=== PATIENT | female | born 1955 | race Caucasian/White ===

== ENCOUNTER → 2017-03-14 | Day surgery (SDC) | payer OTHER ==
--- NOTE | 2017-03-15 12:40 | PATH ---
Cytology Non-Gynecological Report Patient Name: BETTY AMARO [facility]. Rec. #: [id number] /Age/Gender: 1955 (Age: 61) / F Account: [id number] Location: [facility] Taken: 03/14/2017 Received: 03/14/2017 Reported: 03/15/2017 Physicians: Miranda Ortiz M.D. Specimen(s) Received RIGHT THYROID FNA Clinical History Right thyroid nodule, 3.67 x 3.24 x 4.24 cm Final Diagnosis THYROID GLAND, RIGHT LOBE, US GUIDED FINE NEEDLE ASPIRATION BIOPSY: SATISFACTORY FOR EVALUATION. NO MALIGNANT CELLS IDENTIFIED. CONSISTENT WITH NODULAR HYPERPLASIA (BENIGN FOLLICULAR NODULE, BETHESDA CATEGORY II, BENIGN), SEE COMMENT. Comment: The smears and the cell block show clusters of bland appearing follicular epithelial cells arranged in mixed macro- and microfollicles. 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 Scattered macrophages are present. Colloid is present. Electronically Signed Neeraj Dyer M.D. Gross Description Received are four air dried smears, four smears in 95% alcohol, and 20 cc of bloody fluid in formalin. Four diff-quik stained slides, four Pap stained slides and one cell block are made.
== END | disposition home or self-care (01) ==
LOC: JRADIR 08:25
PROVIDERS: ATTEND Internal Medicine Endocrinology, Diabetes & Metabolism
PROC: 0G9H3ZX Drainage of Right Thyroid Gland Lobe, Percutaneous Approach, Diagnostic (ICD-10-PCS; principal; 2017-03-14)
PROC: BG44ZZZ Ultrasonography of Thyroid Gland (ICD-10-PCS; 2017-03-14)
DX: E04.1 Nontoxic single thyroid nodule (principal)
CPT/HCPCS: 76942; 88173; 88305-TC

== ENCOUNTER 2019-05-08 11:25 | Emergency (ER) | payer OTHER ==
[2019-05-08 11:34] VITALS: BP 143/83; PULSE 56; TEMP 98.6; BMI 40.7
--- NOTE | 2019-05-08 11:46 | PDOC ---
History of Present Illness - General Chief Complaint: Injury Stated Complaint: FALL Time Seen by Provider: 05/08/19 11:38 History Source: Patient Exam Limitations: No Limitations - History of Present Illness Initial Comments: 05/08/19 11:44 tripped and fell onto right shoulder- states felt a crack and unable to lift arm since Occurred: reports: just prior to arrival, this morning Severity: reports: moderate, severe Pain Location: reports: upper extremity (right shouler ) Method of Injury: Yes: fall Modifying Factors: improves with: None Loss of Consciousness: no loss of consciousness Associated Symptoms (Fall): denies symptoms Past History - Travel Traveled outside of the country in the last 30 days: No Close contact w/someone who was outside of country & ill: No - Past Medical History Allergies/Adverse Reactions: Allergies Allergy/AdvReac Type Severity Reaction Status Date / Time No Known Allergies Allergy Verified 02/01/16 16:37 Home Medications: Ambulatory Orders Atorvastatin Ca [Lipitor] 80 mg PO HS 01/31/16 Eplerenone [Inspra] 25 mg PO DAILY 01/31/16 Fenofibrate Nanocrystallized [Fenofibrate] 48 mg PO DAILY 01/31/16 Glimepiride [Amaryl -] 4 mg PO BID 01/31/16 Lisinopril [Prinivil -] 40 mg PO DAILY 01/31/16 Sitagliptin Phosphate [Januvia -] 100 mg PO DAILY 01/31/16 Escitalopram Oxalate [Lexapro -] 10 mg PO DAILY 05/08/19 Oxycodone HCl/Acetaminophen [Percocet 5-325 mg Tablet -] 1 - 2 tab PO Q4H PRN # 7 tablet MDD 4 05/08/19 Cardiac Disorders: Yes (cardiomegaly) COPD: No Diabetes: Yes HTN: Yes - Immunization History Immunization Up to Date: No - Psycho Social/Smoking Cessation Hx Smoking History: Never smoked Have you smoked in the past 12 months: No Information on smoking cessation initiated: No Hx Alcohol Use: No Drug/Substance Use Hx: No Trauma Specific PMHX - Complaint Specific PMHX Arthritis: No Back Injury: No Review of Systems - Review of Systems Able to Perform ROS?: Yes Is the patient limited [place] proficient: Yes Constitutional: Yes: Symptoms Reported, See HPI, Malaise. No: Fever HEENTM: Yes: See HPI. No: Symptoms Reported Respiratory: Yes: See HPI. No: Symptoms reported All Other Systems: Reviewed and Negative *Physical Exam - Vital Signs Last Vital Signs Temp Pulse Resp BP Pulse Ox 98.6 F 56 L 16 143/83 97 05/08/19 11:31 05/08/19 11:31 05/08/19 11:31 05/08/19 11:31 05/08/19 11:31 - Physical Exam General Appearance: Yes: Nourished, Appropriately Dressed, Apparent Distress, Mild Distress HEENT: positive: PHOEBE, Normal ENT Inspection, TMs Normal, Pharynx Normal Neck: positive: Tender, Supple. negative: Lymphadenopathy (R), Lymphadenopathy (L) Respiratory/Chest: positive: Lungs Clear Gastrointestinal/Abdominal: positive: Soft. negative: Tender Musculoskeletal: positive: Decreased Range of Motion. negative: Vertebral Tenderness Extremity: positive: Normal Inspection, Tender, Swelling, Other (Neurovascular intact to hand, strong grasp, flexion and extension of fingers.). negative: Normal Range of Motion Integumentary: positive: Normal Color Neurologic: positive: youth specialist II-XII NML intact, Fully Oriented, Alert, Normal Mood/ Affect, Normal Response, Motor Strength 11/24 ED Treatment Course - RADIOLOGY Radiology Studies Ordered: Category Date Time Status SHOULDER-RIGHT [RAD] Stat Radiology 05/08/19 11:41 Ordered ED Progress Note - Progress Note Progress Note: 05/08/19 15:42 X-ray shows displaced comminuted fracture of humeral head right sling placed, provided Percocet for pain relief, and will follow-up with orthopedist this week. Discharge - Discharge Information Problems reviewed: Yes Clinical Impression/Diagnosis: Fracture of humeral head, right, closed Qualifiers: Encounter type: initial encounter Qualified Code(s): S42.291A - Other displaced fracture of upper end of right humerus, initial encounter for closed fracture Condition: Stable Disposition: HOME - Admission No - Additional Discharge Information Prescriptions: Oxycodone HCl/Acetaminophen [Percocet 5-325 mg Tablet -] 1 - 2 tab PO Q4H PRN # 7 tablet MDD 4 PRN Reason: Pain - Follow up/Referral Referrals: Ahsan Inman MD [Staff Physician] - - Patient Discharge Instructions Patient Printed Discharge Instructions: How to Use a Sling, Humeral Shaft Fracture Additional Instructions: Rest, ice to area on and off for 15 minutes 4-6 times a day Avoid heavy lifting or exercise until pain and swelling is resolved or until further directed Keep area highly elevated to reduce swelling Use splints/Pedro wrap as directed Followup with orthopedist in one to 2 days if not improving, if significantly improved may wait one week for followup with orthopedist May use ibuprofen every 6 hours as needed for pain - Post Discharge Activity Work/Back to School Note: Back to Work
== END 2019-05-08 12:15 | disposition home or self-care (01) ==
LOC: JERFT 11:25
DX: S42.291A Other displaced fracture of upper end of right humerus, initial encounter for closed fracture (principal); W01.0XXA Fall on same level from slipping, tripping and stumbling without subsequent striking against object, initial encounter; Y93.9 Activity, unspecified; Y92.89 Other specified places as the place of occurrence of the external cause; I51.7 Cardiomegaly; E11.9 Type 2 diabetes mellitus without complications; I10 Essential (primary) hypertension
CPT/HCPCS: 73030-TC-RT-FY; 99281-25

== ENCOUNTER 2021-05-30 07:24 | Inpatient (IN) | payer MEDICARE, OTHER ==
[2021-05-30 07:45] VITALS: BMI 52.2
[2021-05-30 09:57] LABS: BASO % 0.4 % (0-2.0); EOS % 2.8 % (0-4.5); HEMATOCRIT 35.9 % (32.4-45.2); HEMOGLOBIN 12.8 GM/dL (10.7-15.3); LYMPH % 18.7 % (8-40); MCH 29.3 pg (25.7-33.7); MCHC 35.6 g/dl (32.0-36.0); MEAN CELL VOLUME 82.4 fl (80-96); MEAN PLT VOLUME 7.7 fl (7.5-11.1); MONO % 6.4 % (3.8-10.2); NEUT % 71.7 % (42.8-82.8); PLATELET COUNT 222 10^3/uL (134-434); RBC 4.36 M/mm3 (3.60-5.2); RDW 14.5 % (11.6-15.6); WHITE BLOOD COUNT 9.5 K/mm3 (4.0-10.0)
[2021-05-30 10:03] LABS: INR 0.97 (0.83-1.09); PROTHROMBIN TIME (PATIENT) 10.9 SEC (9.7-13.0)
[2021-05-30 10:06] LABS: ACTIVATED PTT 31.2 SECONDS (25.2-36.5)
[2021-05-30 10:20] LABS: CHLORIDE 109 mmol/L (98-107); SODIUM 141 mmol/L (136-145)
[2021-05-30 10:22] LABS: ALBUMIN 2.9 g/dl (3.4-5.0); ANION GAP 7 MMOL/L (8-16); CALCIUM 8.7 mg/dL (8.5-10.1); CO2 25 mmol/L (21-32); GLUCOSE,RANDOM 176 mg/dL (74-106)
[2021-05-30 10:25] LABS: CREATININE 0.9 mg/dL (0.55-1.3); SGOT/AST 14 U/L (15-37); SGPT/ALT 19 U/L (13-61)
[2021-05-30 10:27] LABS: BILIRUBIN,TOTAL 0.2 mg/dL (0.2-1); TOT PROT 6.6 g/dl (6.4-8.2)
[2021-05-30 10:28] LABS: ALK PHOS 86 U/L (45-117)
[2021-05-30 21:11] LABS: BASO % 0.8 % (0-2.0); EOS % 3.1 % (0-4.5); HEMATOCRIT 35.2 % (32.4-45.2); HEMOGLOBIN 12.2 GM/dL (10.7-15.3); LYMPH % 27.8 % (8-40); MCH 28.5 pg (25.7-33.7); MCHC 34.6 g/dl (32.0-36.0); MEAN CELL VOLUME 82.4 fl (80-96); MEAN PLT VOLUME 8.2 fl (7.5-11.1); MONO % 8.9 % (3.8-10.2); NEUT % 59.4 % (42.8-82.8); PLATELET COUNT 222 10^3/uL (134-434); RBC 4.27 M/mm3 (3.60-5.2); RDW 14.5 % (11.6-15.6); WHITE BLOOD COUNT 9.1 K/mm3 (4.0-10.0)
[2021-05-30] MEDS ORDERED: ATORVASTATIN CA 80 MG TABLET (FP) ONE (22:19)
[2021-05-30] MEDS ORDERED: METOPROLOL TARTRATE 50 MG TABLET (FP) ONE (22:19)
[2021-05-30] MEDS ORDERED: INSULIN (LEVEMIR) 100 UNITS/ML UNITS SQ ONE (22:20)
[2021-05-30] MEDS: INSULIN (LEVEMIR) 100 UNITS/ML UNITS SQ SCH (22:37)
[2021-05-30] MEDS: VANCOMYCIN 1 GM in D5W (PRE-DOCKED) 1,000 MG/250 ML IVPB SCH (22:37)
[2021-05-30] MEDS: ATORVASTATIN CA 80 MG TABLET (FP) PO SCH (22:38)
[2021-05-30] MEDS: METOPROLOL TARTRATE 50 MG TABLET (FP) PO SCH (22:38)
[2021-05-30] MEDS: INSULIN SLIDING SCALE (NOVOLOG) 1 VIAL SQ SCH (22:38)
[2021-05-31] MEDS: PIPERACILLIN/TAZOB 3.375 GM 3.375 GM in DEXTROSE 5%-WATER - 50 ML IVPB SCH ×5 (02:22→20:01)
[2021-05-31 07:48] LABS: ALBUMIN 2.9 g/dl (3.4-5.0); CALCIUM 8.3 mg/dL (8.5-10.1)
[2021-05-31 07:49] LABS: MAGNESIUM 1.8 mg/dL (1.8-2.4)
[2021-05-31 07:51] LABS: PHOSPHOROUS 3.3 mg/dL (2.5-4.9)
[2021-05-31 07:52] LABS: BILIRUBIN,TOTAL 0.4 mg/dL (0.2-1); TOT PROT 6.7 g/dl (6.4-8.2)
[2021-05-31] MEDS: INSULIN SLIDING SCALE (NOVOLOG) 1 VIAL SQ SCH ×4 (08:14→21:32)
[2021-05-31] MEDS ORDERED: VANCOMYCIN 1 GRAM (PRE-DOCKED) 1,000 MG/250 ML BAG IVPB ONE (08:18)
[2021-05-31] MEDS ORDERED: METOPROLOL TARTRATE 50 MG TABLET (FP) ONE (09:50)
[2021-05-31] MEDS ORDERED: ESCITALOPRAM OXALATE 10 MG TABLET ONE (09:50)
[2021-05-31] MEDS ORDERED: LISINOPRIL 20 MG TABLET ONE (09:50)
[2021-05-31] MEDS ORDERED: PIPERACILLIN/TAZOB 3.375 GM 3.375 GM/50 ML BAG IVPB ONE (09:51)
[2021-05-31] MEDS: ESCITALOPRAM OXALATE 10 MG TABLET PO SCH (10:04)
[2021-05-31] MEDS: VANCOMYCIN 1 GM in D5W (PRE-DOCKED) 1,000 MG/250 ML IVPB SCH ×3 (10:04→20:01)
[2021-05-31] MEDS: METOPROLOL TARTRATE 50 MG TABLET (FP) PO SCH ×2 (10:04→21:31)
[2021-05-31] MEDS: LISINOPRIL 20 MG TABLET PO SCH (10:04)
[2021-05-31] MEDS ORDERED: ENOXAPARIN NA (PORCINE) 40 MG/0.4 ML DISP.SYRIN SQ ONE (13:14)
[2021-05-31] MEDS: ENOXAPARIN NA (PORCINE) 40 MG/0.4 ML DISP.SYRIN SQ SCH (14:26)
[2021-05-31] MEDS ORDERED: DEXTROSE 5%-WATER - 50 ML IVPB ONE (17:03)
[2021-05-31] MEDS ORDERED: PIPERACILLIN/TAZOBACTAM 3.375 GM VIAL IVPB ONE (17:03)
[2021-05-31] MEDS: ATORVASTATIN CA 80 MG TABLET (FP) PO SCH (21:31)
[2021-05-31] MEDS: INSULIN (LEVEMIR) 100 UNITS/ML UNITS SQ SCH (21:32)
[2021-06-01] MEDS: INSULIN SLIDING SCALE (NOVOLOG) 1 VIAL SQ SCH ×4 (06:01→22:06)
[2021-06-01 09:01] LABS: BASO % 0.4 % (0-2.0); EOS % 3.4 % (0-4.5); HEMATOCRIT 36.1 % (32.4-45.2); HEMOGLOBIN 12.4 GM/dL (10.7-15.3); LYMPH % 21.4 % (8-40); MCHC 34.4 g/dl (32.0-36.0); MEAN CELL VOLUME 84.3 fl (80-96); MEAN PLT VOLUME 8.5 fl (7.5-11.1); MONO % 8.9 % (3.8-10.2); NEUT % 65.9 % (42.8-82.8); PLATELET COUNT 223 10^3/uL (134-434); RBC 4.28 M/mm3 (3.60-5.2); RDW 14.4 % (11.6-15.6); WHITE BLOOD COUNT 8.8 K/mm3 (4.0-10.0)
[2021-06-01 09:31] LABS: CREATININE 0.9 mg/dL (0.55-1.3)
[2021-06-01 09:33] LABS: BILIRUBIN,TOTAL 0.5 mg/dL (0.2-1); TOT PROT 6.7 g/dl (6.4-8.2)
[2021-06-01] MEDS: ESCITALOPRAM OXALATE 10 MG TABLET PO SCH (11:26)
[2021-06-01] MEDS: METOPROLOL TARTRATE 50 MG TABLET (FP) PO SCH ×2 (11:27→22:05)
[2021-06-01] MEDS: ENOXAPARIN NA (PORCINE) 40 MG/0.4 ML DISP.SYRIN SQ SCH (11:27)
[2021-06-01] MEDS: LISINOPRIL 20 MG TABLET PO SCH (11:27)
[2021-06-01] MEDS ORDERED: DEXTROSE 5%-WATER 100 ML IVPB ONE (13:23)
[2021-06-01] MEDS: CEFTRIAXONE 2 GM in DEXTROSE 5%-WATER 2 GM/100 ML BAG IVPB SCH (14:09)
[2021-06-01] MEDS ORDERED: INSULIN (NOVOLOG) ASPART 100 UNITS/ML 10ML VIAL ONE (22:03)
[2021-06-01] MEDS: INSULIN (LEVEMIR) 100 UNITS/ML UNITS SQ SCH (22:05)
[2021-06-01] MEDS: ATORVASTATIN CA 80 MG TABLET (FP) PO SCH (22:05)
[2021-06-02] MEDS: INSULIN SLIDING SCALE (NOVOLOG) 1 VIAL SQ SCH ×4 (06:28→21:59)
[2021-06-02 09:46] LABS: BASO % 0.5 % (0-2.0); EOS % 3.6 % (0-4.5); HEMATOCRIT 37.9 % (32.4-45.2); HEMOGLOBIN 12.8 GM/dL (10.7-15.3); LYMPH % 15.9 % (8-40); MCH 28.9 pg (25.7-33.7); MCHC 33.7 g/dl (32.0-36.0); MEAN CELL VOLUME 85.9 fl (80-96); MEAN PLT VOLUME 8.9 fl (7.5-11.1); MONO % 7.9 % (3.8-10.2); NEUT % 72.1 % (42.8-82.8); PLATELET COUNT 237 10^3/uL (134-434); RBC 4.41 M/mm3 (3.60-5.2); RDW 14.2 % (11.6-15.6); WHITE BLOOD COUNT 6.9 K/mm3 (4.0-10.0)
[2021-06-02 10:09] LABS: ALBUMIN 3.1 g/dl (3.4-5.0); BLOOD UREA NITROGEN 25.6 mg/dL (7-18); CALCIUM 8.5 mg/dL (8.5-10.1)
[2021-06-02 10:12] LABS: CREATININE 0.9 mg/dL (0.55-1.3)
[2021-06-02 10:13] LABS: BILIRUBIN,TOTAL 0.4 mg/dL (0.2-1)
[2021-06-02] MEDS ORDERED: DEXTROSE 5%-WATER 100 ML IVPB ONE (10:42)
[2021-06-02] MEDS: METOPROLOL TARTRATE 50 MG TABLET (FP) PO SCH ×2 (10:46→21:58)
[2021-06-02] MEDS: ESCITALOPRAM OXALATE 10 MG TABLET PO SCH (10:46)
[2021-06-02] MEDS: ENOXAPARIN NA (PORCINE) 40 MG/0.4 ML DISP.SYRIN SQ SCH (10:47)
[2021-06-02] MEDS: CEFTRIAXONE 2 GM in DEXTROSE 5%-WATER 2 GM/100 ML BAG IVPB SCH (10:47)
[2021-06-02] MEDS: LISINOPRIL 20 MG TABLET PO SCH (10:47)
[2021-06-02] MEDS: ATORVASTATIN CA 80 MG TABLET (FP) PO SCH (21:58)
[2021-06-02] MEDS: INSULIN (LEVEMIR) 100 UNITS/ML UNITS SQ SCH (21:58)
[2021-06-03] MEDS: INSULIN SLIDING SCALE (NOVOLOG) 1 VIAL SQ SCH ×4 (06:54→21:53)
[2021-06-03] MEDS ORDERED: INSULIN (LEVEMIR) 100 UNITS/ML UNITS SQ ONE (07:45)
[2021-06-03] MEDS ORDERED: INSULIN (NOVOLOG) ASPART 100 UNITS/ML 10ML VIAL ONE (07:46)
[2021-06-03 09:10] LABS: BASO % 0.6 % (0-2.0); EOS % 4.3 % (0-4.5); HEMATOCRIT 38.3 % (32.4-45.2); HEMOGLOBIN 12.9 GM/dL (10.7-15.3); LYMPH % 23.2 % (8-40); MCH 28.8 pg (25.7-33.7); MCHC 33.7 g/dl (32.0-36.0); MEAN CELL VOLUME 85.4 fl (80-96); MEAN PLT VOLUME 8.7 fl (7.5-11.1); MONO % 9.8 % (3.8-10.2); NEUT % 62.1 % (42.8-82.8); PLATELET COUNT 232 10^3/uL (134-434); RBC 4.48 M/mm3 (3.60-5.2); RDW 14.1 % (11.6-15.6); WHITE BLOOD COUNT 7.1 K/mm3 (4.0-10.0)
[2021-06-03 09:26] LABS: ALBUMIN 2.8 g/dl (3.4-5.0); BLOOD UREA NITROGEN 24.1 mg/dL (7-18)
[2021-06-03 09:29] LABS: CREATININE 0.8 mg/dL (0.55-1.3)
[2021-06-03 09:30] LABS: BILIRUBIN,TOTAL 0.3 mg/dL (0.2-1); TOT PROT 6.5 g/dl (6.4-8.2)
[2021-06-03] MEDS ORDERED: DEXTROSE 5%-WATER 100 ML IVPB ONE (10:15)
[2021-06-03] MEDS: ESCITALOPRAM OXALATE 10 MG TABLET PO SCH (10:34)
[2021-06-03] MEDS: METOPROLOL TARTRATE 50 MG TABLET (FP) PO SCH ×2 (10:34→21:50)
[2021-06-03] MEDS: CEFTRIAXONE 2 GM in DEXTROSE 5%-WATER 2 GM/100 ML BAG IVPB SCH (10:34)
[2021-06-03] MEDS: LISINOPRIL 20 MG TABLET PO SCH (10:35)
[2021-06-03] MEDS: ENOXAPARIN NA (PORCINE) 40 MG/0.4 ML DISP.SYRIN SQ SCH (10:35)
[2021-06-03] MEDS ORDERED: PT OWN MED DRAWER 7, Y5N ONE (11:53)
[2021-06-03] MEDS: ATORVASTATIN CA 80 MG TABLET (FP) PO SCH (21:50)
[2021-06-03] MEDS: INSULIN (LEVEMIR) 100 UNITS/ML UNITS SQ SCH (21:53)
[2021-06-04] MEDS: INSULIN SLIDING SCALE (NOVOLOG) 1 VIAL SQ SCH ×4 (06:32→21:02)
[2021-06-04 08:51] LABS: BASO % 0.8 % (0-2.0); EOS % 3.1 % (0-4.5); HEMATOCRIT 38.5 % (32.4-45.2); LYMPH % 25.6 % (8-40); MCH 28.9 pg (25.7-33.7); MCHC 33.8 g/dl (32.0-36.0); MEAN CELL VOLUME 85.4 fl (80-96); MEAN PLT VOLUME 8.9 fl (7.5-11.1); MONO % 8.3 % (3.8-10.2); NEUT % 62.2 % (42.8-82.8); PLATELET COUNT 238 10^3/uL (134-434); RBC 4.51 M/mm3 (3.60-5.2); RDW 14.1 % (11.6-15.6); WHITE BLOOD COUNT 7.5 K/mm3 (4.0-10.0)
[2021-06-04 09:12] LABS: CALCIUM 8.8 mg/dL (8.5-10.1)
[2021-06-04 09:15] LABS: ALBUMIN 2.8 g/dl (3.4-5.0)
[2021-06-04 09:16] LABS: TOT PROT 6.5 g/dl (6.4-8.2)
[2021-06-04 09:18] LABS: CREATININE 0.8 mg/dL (0.55-1.3)
[2021-06-04 09:19] LABS: BILIRUBIN,TOTAL 0.6 mg/dL (0.2-1)
[2021-06-04] MEDS ORDERED: MULTIVITAMINS (DAILY MVI) TABLET (FP) PO SCH (10:00)
[2021-06-04] MEDS: METOPROLOL TARTRATE 50 MG TABLET (FP) PO SCH ×2 (10:07→21:01)
[2021-06-04] MEDS: ESCITALOPRAM OXALATE 10 MG TABLET PO SCH (10:08)
[2021-06-04] MEDS: LISINOPRIL 20 MG TABLET PO SCH (10:08)
[2021-06-04] MEDS: MULTIVITAMINS (DAILY MVI) TABLET (FP) PO SCH (10:08)
[2021-06-04] MEDS ORDERED: DEXTROSE 5%-WATER 100 ML IVPB ONE (11:24)
[2021-06-04] MEDS: CEFTRIAXONE 2 GM in DEXTROSE 5%-WATER 2 GM/100 ML BAG IVPB SCH (11:30)
[2021-06-04] MEDS: ENOXAPARIN NA (PORCINE) 40 MG/0.4 ML DISP.SYRIN SQ SCH (11:30)
[2021-06-04] MEDS: ATORVASTATIN CA 80 MG TABLET (FP) PO SCH (21:01)
[2021-06-04] MEDS: INSULIN (LEVEMIR) 100 UNITS/ML UNITS SQ SCH (21:01)
[2021-06-05] MEDS: INSULIN SLIDING SCALE (NOVOLOG) 1 VIAL SQ SCH ×4 (06:05→21:01)
[2021-06-05 08:18] LABS: BASO % 0.6 % (0-2.0); HEMATOCRIT 37.2 % (32.4-45.2); HEMOGLOBIN 12.7 GM/dL (10.7-15.3); LYMPH % 25.2 % (8-40); MCH 29.2 pg (25.7-33.7); MCHC 34.1 g/dl (32.0-36.0); MEAN CELL VOLUME 85.4 fl (80-96); MEAN PLT VOLUME 8.8 fl (7.5-11.1); MONO % 9.1 % (3.8-10.2); NEUT % 62.1 % (42.8-82.8); PLATELET COUNT 237 10^3/uL (134-434); RBC 4.35 M/mm3 (3.60-5.2); RDW 14.4 % (11.6-15.6); WHITE BLOOD COUNT 8.3 K/mm3 (4.0-10.0)
[2021-06-05 08:35] LABS: CALCIUM 8.4 mg/dL (8.5-10.1)
[2021-06-05 08:36] LABS: BLOOD UREA NITROGEN 29.5 mg/dL (7-18)
[2021-06-05] MEDS ORDERED: DEXTROSE 5%-WATER 100 ML IVPB ONE (09:24)
[2021-06-05] MEDS: LISINOPRIL 20 MG TABLET PO SCH (09:29)
[2021-06-05] MEDS: METOPROLOL TARTRATE 50 MG TABLET (FP) PO SCH ×2 (09:29→21:02)
[2021-06-05] MEDS: ENOXAPARIN NA (PORCINE) 40 MG/0.4 ML DISP.SYRIN SQ SCH (09:29)
[2021-06-05] MEDS: MULTIVITAMINS (DAILY MVI) TABLET (FP) PO SCH (09:29)
[2021-06-05] MEDS: CEFTRIAXONE 2 GM in DEXTROSE 5%-WATER 2 GM/100 ML BAG IVPB SCH (09:30)
[2021-06-05] MEDS: ESCITALOPRAM OXALATE 10 MG TABLET PO SCH (09:30)
[2021-06-05] MEDS: INSULIN (LEVEMIR) 100 UNITS/ML UNITS SQ SCH (21:02)
[2021-06-05] MEDS: ATORVASTATIN CA 80 MG TABLET (FP) PO SCH (21:02)
[2021-06-06] MEDS: INSULIN SLIDING SCALE (NOVOLOG) 1 VIAL SQ SCH ×4 (06:12→21:06)
[2021-06-06 08:28] LABS: BASO % 0.7 % (0-2.0); EOS % 3.3 % (0-4.5); HEMATOCRIT 40.3 % (32.4-45.2); HEMOGLOBIN 13.5 GM/dL (10.7-15.3); LYMPH % 24.2 % (8-40); MCH 28.6 pg (25.7-33.7); MCHC 33.5 g/dl (32.0-36.0); MEAN CELL VOLUME 85.4 fl (80-96); MEAN PLT VOLUME 8.8 fl (7.5-11.1); MONO % 8.2 % (3.8-10.2); NEUT % 63.6 % (42.8-82.8); PLATELET COUNT 246 10^3/uL (134-434); RBC 4.72 M/mm3 (3.60-5.2); RDW 14.4 % (11.6-15.6); WHITE BLOOD COUNT 8.6 K/mm3 (4.0-10.0)
[2021-06-06 09:15] LABS: BLOOD UREA NITROGEN 30.5 mg/dL (7-18)
[2021-06-06 09:18] LABS: CREATININE 0.9 mg/dL (0.55-1.3)
[2021-06-06] MEDS ORDERED: DEXTROSE 5%-WATER 100 ML IVPB ONE (10:01)
[2021-06-06] MEDS: METOPROLOL TARTRATE 50 MG TABLET (FP) PO SCH ×2 (10:02→21:06)
[2021-06-06] MEDS: CEFTRIAXONE 2 GM in DEXTROSE 5%-WATER 2 GM/100 ML BAG IVPB SCH (10:02)
[2021-06-06] MEDS: ESCITALOPRAM OXALATE 10 MG TABLET PO SCH (10:02)
[2021-06-06] MEDS: LISINOPRIL 20 MG TABLET PO SCH (10:02)
[2021-06-06] MEDS: ENOXAPARIN NA (PORCINE) 40 MG/0.4 ML DISP.SYRIN SQ SCH (10:02)
[2021-06-06] MEDS: MULTIVITAMINS (DAILY MVI) TABLET (FP) PO SCH (10:02)
[2021-06-06] MEDS: COLLAGENASE CLOSTRIDIUM HIST. 30 GRAMS TUBE TP SCH (11:40)
[2021-06-06] MEDS: INSULIN (LEVEMIR) 100 UNITS/ML UNITS SQ SCH (21:06)
[2021-06-06] MEDS: ATORVASTATIN CA 80 MG TABLET (FP) PO SCH (21:06)
[2021-06-07] MEDS: INSULIN SLIDING SCALE (NOVOLOG) 1 VIAL SQ SCH ×2 (06:12→11:37)
[2021-06-07] MEDS ORDERED: DEXTROSE 5%-WATER 100 ML IVPB ONE (09:50)
[2021-06-07] MEDS: CEFTRIAXONE 2 GM in DEXTROSE 5%-WATER 2 GM/100 ML BAG IVPB SCH (09:51)
[2021-06-07] MEDS: LISINOPRIL 20 MG TABLET PO SCH (09:52)
[2021-06-07] MEDS: METOPROLOL TARTRATE 50 MG TABLET (FP) PO SCH (09:52)
[2021-06-07] MEDS: ENOXAPARIN NA (PORCINE) 40 MG/0.4 ML DISP.SYRIN SQ SCH (09:52)
[2021-06-07] MEDS: ESCITALOPRAM OXALATE 10 MG TABLET PO SCH (09:52)
[2021-06-07] MEDS: MULTIVITAMINS (DAILY MVI) TABLET (FP) PO SCH (09:53)
[2021-06-07] MEDS: COLLAGENASE CLOSTRIDIUM HIST. 30 GRAMS TUBE TP SCH (09:53)
[2021-06-07 09:55] LABS: HEMATOCRIT 37.5 % (32.4-45.2); HEMOGLOBIN 12.7 GM/dL (10.7-15.3); MCH 28.8 pg (25.7-33.7); MEAN CELL VOLUME 84.9 fl (80-96); MEAN PLT VOLUME 8.8 fl (7.5-11.1); PLATELET COUNT 236 10^3/uL (134-434); RBC 4.41 M/mm3 (3.60-5.2); RDW 14.3 % (11.6-15.6)
[2021-06-07 10:43] LABS: BLOOD UREA NITROGEN 29.4 mg/dL (7-18)
[2021-06-07 10:44] LABS: CALCIUM 8.5 mg/dL (8.5-10.1)
[2021-06-07] MEDS ORDERED: PT OWN MED DRAWER 7, Y5N ONE (13:48)
[2021-06-07 14:24] VITALS: TEMP 98.8
[2021-06-07 15:43] VITALS: BP 138/88; PULSE 66
== END 2021-06-07 16:00 | disposition home or self-care (01) | DRG 629 ==
LOC: JER 07:24 → INTOOBSV 11:40 → UNDOADMOB 11:40 → JERBED 11:40 → J6S 05-31 15:33 → OBSVTOIN 06-02 13:20
PROVIDERS: ADMIT Internal Medicine
PROC: 0QBN0ZX Excision of Right Metatarsal, Open Approach, Diagnostic (ICD-10-PCS; principal; 2021-05-31)
PROC: 05HB33Z Insertion of Infusion Device into Right Basilic Vein, Percutaneous Approach (ICD-10-PCS; 2021-06-07)
PROC: B51MZZA Fluoroscopy of Right Upper Extremity Veins, Guidance (ICD-10-PCS; 2021-06-07)
DX: E11.621 Type 2 diabetes mellitus with foot ulcer (principal); M86.9 Osteomyelitis, unspecified; Z68.43 Body mass index [BMI] 50.0-59.9, adult; L03.115 Cellulitis of right lower limb; E11.51 Type 2 diabetes mellitus with diabetic peripheral angiopathy without gangrene; E11.40 Type 2 diabetes mellitus with diabetic neuropathy, unspecified; E66.01 Morbid (severe) obesity due to excess calories; R59.0 Localized enlarged lymph nodes; I10 Essential (primary) hypertension; E78.5 Hyperlipidemia, unspecified; G47.33 Obstructive sleep apnea (adult) (pediatric); F32.A Depression, unspecified
CPT/HCPCS: 36415; 36569; 71045-TC-FY; 72192-TC; 73630-TC-RT-FY; 76882-TC-RT-FY; 80048; 80053; 82607; 82747; 82784; 82962; 83615; 83735; 84100; 84155; 84165; 84439; 84443; 84484; 85014; 85025; 85027; 85610; 85651; 85730; 86140; 86334; 87040; 87070; 87205; 88305-TC; 88311-TC; 93005; 93010; 93970-TC; 99285-25; C9803; G0378; U0003; U0005

== ENCOUNTER 2022-02-23 09:37 | Inpatient (IN) | payer MEDICARE, OTHER ==
[2022-02-23 09:51] VITALS: BMI 48.8
[2022-02-23] MEDS ORDERED: VANCOMYCIN 1 GM in D5W (PRE-DOCKED) 1,000 MG/250 ML IVPB ONE (10:39)
[2022-02-23] MEDS ORDERED: CEFEPIME HCL/D5W 2 GM/50 ML BAG IVPB ONE (10:39)
[2022-02-23] MEDS ORDERED: VANCOMYCIN/WATER FOR INJ (PEG) 1,000 MG/200 ML BAG IVPB ONE (11:12)
[2022-02-23] MEDS ORDERED: CEFEPIME 2 GM in DEXTROSE 5%-WATER 2 GM/100 ML BAG IVPB ONE (11:45)
[2022-02-23 12:05] LABS: BASO % 0.5 % (0-2.0); EOS % 2.1 % (0-4.5); HEMATOCRIT 36.1 % (32.4-45.2); HEMOGLOBIN 12.1 GM/dL (10.7-15.3); LYMPH % 18.4 % (8-40); MCH 27.7 pg (25.7-33.7); MCHC 33.5 g/dl (32.0-36.0); MEAN CELL VOLUME 82.9 fl (80-96); MEAN PLT VOLUME 8.8 fl (7.5-11.1); MONO % 9.3 % (3.8-10.2); NEUT % 69.7 % (42.8-82.8); PLATELET COUNT 233 10^3/uL (134-434); RBC 4.36 M/mm3 (3.60-5.2); WHITE BLOOD COUNT 8.3 K/mm3 (4.0-10.0)
[2022-02-23 12:14] LABS: INR 0.98 (0.83-1.09); PROTHROMBIN TIME (PATIENT) 11.3 SEC (9.7-13.0)
[2022-02-23 12:20] LABS: ACTIVATED PTT 33.4 SECONDS (25.2-36.5)
[2022-02-23 12:25] LABS: BLOOD UREA NITROGEN 27.3 mg/dL (7-18); CALCIUM 8.8 mg/dL (8.5-10.1)
[2022-02-23 12:26] LABS: ALBUMIN 2.9 g/dl (3.4-5.0)
[2022-02-23 12:29] LABS: BILIRUBIN,TOTAL 0.5 mg/dL (0.2-1); CREATININE 0.8 mg/dL (0.55-1.3)
[2022-02-23 12:30] LABS: TOT PROT 6.4 g/dl (6.4-8.2)
[2022-02-23] MEDS ORDERED: DOCUSATE SODIUM 100 MG CAPSULE (FP) PO PRN (13:34)
[2022-02-23] MEDS ORDERED: ACETAMINOPHEN 325 MG TABLET (FP) PO PRN (13:34)
[2022-02-23] MEDS ORDERED: SENNOSIDES 8.6MG TABLET (FP) PO PRN (13:34)
[2022-02-23] MEDS ORDERED: oxyCODONE HCL 5 MG TABLET PO PRN (13:34)
[2022-02-23] MEDS ORDERED: PATIENT'S OWN MEDICATION (NON-FORMULARY) (Dulaglutide [Trulicity] 1.5 MG/0.5 ML Pen.Injctr SQ SCH (15:00)
[2022-02-23] MEDS: PIPERACILLIN/TAZOB 3.375 GM 3.375 GM in DEXTROSE 5%-WATER - 50 ML IVPB SCH (17:30)
[2022-02-23] MEDS ORDERED: PIPERACILLIN/TAZOB 3.375 GM 3.375 GM/50 ML BAG IVPB ONE (17:59)
[2022-02-23] MEDS: INSULIN SLIDING SCALE (NOVOLOG) 1 VIAL SQ SCH (18:11)
[2022-02-23] MEDS ORDERED: CEFEPIME HCL/D5W 2 GM/50 ML BAG IVPB SCH (22:00)
[2022-02-24] MEDS ORDERED: PIPERACILLIN/TAZOB 3.375 GM 3.375 GM/50 ML BAG IVPB ONE ×3 (04:38→17:58)
[2022-02-24] MEDS ORDERED: ATORVASTATIN CA 80 MG TABLET (FP) ONE ×2 (04:39→21:51)
[2022-02-24] MEDS ORDERED: FUROSEMIDE 40 MG/4 ML INJECTABLE VIAL ONE (06:19)
[2022-02-24] MEDS: PIPERACILLIN/TAZOB 3.375 GM 3.375 GM in DEXTROSE 5%-WATER - 50 ML IVPB SCH ×4 (07:09→18:04)
[2022-02-24] MEDS: INSULIN SLIDING SCALE (NOVOLOG) 1 VIAL SQ SCH ×5 (07:11→22:01)
[2022-02-24] MEDS ORDERED: VANCOMYCIN/WATER 2 GM/400 ML PREMIX BAG IVPB SCH (10:00)
[2022-02-24] MEDS ORDERED: ENOXAPARIN NA (PORCINE) 40 MG/0.4 ML DISP.SYRIN SQ ONE (10:22)
[2022-02-24] MEDS ORDERED: LISINOPRIL 20 MG TABLET ONE (10:22)
[2022-02-24] MEDS ORDERED: ESCITALOPRAM OXALATE 10 MG TABLET ONE (10:22)
[2022-02-24] MEDS: LISINOPRIL 20 MG TABLET PO SCH (10:30)
[2022-02-24] MEDS: ENOXAPARIN NA (PORCINE) 40 MG/0.4 ML DISP.SYRIN SQ SCH (10:30)
[2022-02-24] MEDS: ESCITALOPRAM OXALATE 10 MG TABLET PO SCH (10:30)
[2022-02-24 11:17] LABS: BASO % 0.5 % (0-2.0); EOS % 3.7 % (0-4.5); HEMATOCRIT 37.1 % (32.4-45.2); HEMOGLOBIN 12.6 GM/dL (10.7-15.3); LYMPH % 18.6 % (8-40); MCH 28.2 pg (25.7-33.7); MONO % 10.3 % (3.8-10.2); NEUT % 66.9 % (42.8-82.8); PLATELET COUNT 238 10^3/uL (134-434); RBC 4.47 M/mm3 (3.60-5.2); RDW 14.2 % (11.6-15.6); WHITE BLOOD COUNT 7.3 K/mm3 (4.0-10.0)
[2022-02-24 11:43] LABS: CALCIUM 8.8 mg/dL (8.5-10.1)
[2022-02-24 11:44] LABS: ALBUMIN 3.1 g/dl (3.4-5.0); BLOOD UREA NITROGEN 25.5 mg/dL (7-18)
[2022-02-24 11:45] LABS: MAGNESIUM 1.7 mg/dL (1.8-2.4)
[2022-02-24 11:47] LABS: CREATININE 0.9 mg/dL (0.55-1.3); PHOSPHOROUS 3.1 mg/dL (2.5-4.9)
[2022-02-24 11:49] LABS: BILIRUBIN,TOTAL 0.5 mg/dL (0.2-1); TOT PROT 6.9 g/dl (6.4-8.2)
[2022-02-24] MEDS: COLLAGENASE CLOSTRIDIUM HIST. 30 GRAMS TUBE TP SCH (15:19)
[2022-02-24] MEDS: ATORVASTATIN CA 80 MG TABLET (FP) PO SCH ×2 (22:02)
[2022-02-25] MEDS ORDERED: PIPERACILLIN/TAZOB 3.375 GM 3.375 GM/50 ML BAG IVPB ONE (04:18)
[2022-02-25] MEDS: PIPERACILLIN/TAZOB 3.375 GM 3.375 GM in DEXTROSE 5%-WATER - 50 ML IVPB SCH ×5 (04:28→19:21)
[2022-02-25] MEDS: INSULIN SLIDING SCALE (NOVOLOG) 1 VIAL SQ SCH ×4 (08:49→22:36)
[2022-02-25] MEDS: ENOXAPARIN NA (PORCINE) 40 MG/0.4 ML DISP.SYRIN SQ SCH (10:37)
[2022-02-25] MEDS: ESCITALOPRAM OXALATE 10 MG TABLET PO SCH (10:37)
[2022-02-25] MEDS: LISINOPRIL 20 MG TABLET PO SCH (10:37)
[2022-02-25] MEDS: COLLAGENASE CLOSTRIDIUM HIST. 30 GRAMS TUBE TP SCH (11:38)
[2022-02-25] MEDS ORDERED: DEXTROSE 50%-WATER - 25 GM/50 ML VIAL IVPUSH PRN (15:46)
[2022-02-25] MEDS ORDERED: MAGNESIUM SULF 50% (8.12 MEQ/2 ML-1 GM VIAL) IVPB ONE (17:29)
[2022-02-25 19:57] LABS: HEMATOCRIT 36.9 % (32.4-45.2); HEMOGLOBIN 12.3 GM/dL (10.7-15.3); MCH 27.9 pg (25.7-33.7); MCHC 33.5 g/dl (32.0-36.0); MEAN CELL VOLUME 83.3 fl (80-96); MEAN PLT VOLUME 8.8 fl (7.5-11.1); PLATELET COUNT 246 10^3/uL (134-434); RBC 4.43 M/mm3 (3.60-5.2); RDW 14.3 % (11.6-15.6); WHITE BLOOD COUNT 7.5 K/mm3 (4.0-10.0)
[2022-02-25 20:17] LABS: CALCIUM 8.7 mg/dL (8.5-10.1)
[2022-02-25 20:18] LABS: BLOOD UREA NITROGEN 24.5 mg/dL (7-18); MAGNESIUM 1.6 mg/dL (1.8-2.4)
[2022-02-25 20:19] LABS: ALBUMIN 2.9 g/dl (3.4-5.0)
[2022-02-25 20:21] LABS: CREATININE 1.1 mg/dL (0.55-1.3)
[2022-02-25 20:23] LABS: BILIRUBIN,TOTAL 0.3 mg/dL (0.2-1); PHOSPHOROUS 3.2 mg/dL (2.5-4.9); TOT PROT 6.4 g/dl (6.4-8.2)
[2022-02-25] MEDS: ATORVASTATIN CA 80 MG TABLET (FP) PO SCH (22:35)
[2022-02-25] MEDS: INSULIN (LEVEMIR) 100 UNITS/ML UNITS SQ SCH (22:35)
[2022-02-26] MEDS: PIPERACILLIN/TAZOB 3.375 GM 3.375 GM in DEXTROSE 5%-WATER - 50 ML IVPB SCH ×3 (02:20→17:43)
[2022-02-26] MEDS: INSULIN SLIDING SCALE (NOVOLOG) 1 VIAL SQ SCH ×4 (06:34→21:26)
[2022-02-26] MEDS: INSULIN (LEVEMIR) 100 UNITS/ML UNITS SQ SCH ×2 (06:35→21:26)
[2022-02-26 08:41] LABS: BASO % 0.6 % (0-2.0); EOS % 3.9 % (0-4.5); HEMATOCRIT 36.3 % (32.4-45.2); HEMOGLOBIN 12.2 GM/dL (10.7-15.3); LYMPH % 25.3 % (8-40); MCH 28.2 pg (25.7-33.7); MCHC 33.7 g/dl (32.0-36.0); MEAN CELL VOLUME 83.6 fl (80-96); MEAN PLT VOLUME 8.7 fl (7.5-11.1); MONO % 9.1 % (3.8-10.2); NEUT % 61.1 % (42.8-82.8); PLATELET COUNT 255 10^3/uL (134-434); RBC 4.34 M/mm3 (3.60-5.2); RDW 14.4 % (11.6-15.6); WHITE BLOOD COUNT 7.3 K/mm3 (4.0-10.0)
[2022-02-26 09:03] LABS: CALCIUM 8.9 mg/dL (8.5-10.1)
[2022-02-26 09:04] LABS: BLOOD UREA NITROGEN 26.4 mg/dL (7-18)
[2022-02-26 09:07] LABS: CREATININE 0.9 mg/dL (0.55-1.3)
[2022-02-26] MEDS: ENOXAPARIN NA (PORCINE) 40 MG/0.4 ML DISP.SYRIN SQ SCH (10:21)
[2022-02-26] MEDS: ESCITALOPRAM OXALATE 10 MG TABLET PO SCH (10:21)
[2022-02-26] MEDS: LISINOPRIL 20 MG TABLET PO SCH (10:21)
[2022-02-26] MEDS: COLLAGENASE CLOSTRIDIUM HIST. 30 GRAMS TUBE TP SCH (10:24)
[2022-02-26] MEDS: ATORVASTATIN CA 80 MG TABLET (FP) PO SCH (21:26)
[2022-02-27] MEDS: PIPERACILLIN/TAZOB 3.375 GM 3.375 GM in DEXTROSE 5%-WATER - 50 ML IVPB SCH ×3 (02:33→17:33)
[2022-02-27] MEDS: INSULIN (LEVEMIR) 100 UNITS/ML UNITS SQ SCH ×2 (06:30→21:47)
[2022-02-27] MEDS: INSULIN SLIDING SCALE (NOVOLOG) 1 VIAL SQ SCH ×4 (06:30→21:47)
[2022-02-27] MEDS: ESCITALOPRAM OXALATE 10 MG TABLET PO SCH (10:38)
[2022-02-27] MEDS: LISINOPRIL 20 MG TABLET PO SCH ×2 (10:38→11:25)
[2022-02-27] MEDS: ENOXAPARIN NA (PORCINE) 40 MG/0.4 ML DISP.SYRIN SQ SCH (10:38)
[2022-02-27] MEDS: COLLAGENASE CLOSTRIDIUM HIST. 30 GRAMS TUBE TP SCH (11:14)
[2022-02-27] MEDS: NYSTATIN 100,000 UNIT/GM TOPICAL CREAM 15 GM TUBE TP SCH ×2 (12:01→21:53)
[2022-02-27] MEDS: ATORVASTATIN CA 80 MG TABLET (FP) PO SCH (21:45)
[2022-02-28] MEDS: PIPERACILLIN/TAZOB 3.375 GM 3.375 GM in DEXTROSE 5%-WATER - 50 ML IVPB SCH ×3 (01:59→18:49)
[2022-02-28 06:47] VITALS: RESP 20
[2022-02-28] MEDS: INSULIN SLIDING SCALE (NOVOLOG) 1 VIAL SQ SCH ×4 (06:50→22:57)
[2022-02-28] MEDS: INSULIN (LEVEMIR) 100 UNITS/ML UNITS SQ SCH (06:50)
[2022-02-28] MEDS: ENOXAPARIN NA (PORCINE) 40 MG/0.4 ML DISP.SYRIN SQ SCH (09:28)
[2022-02-28] MEDS: ESCITALOPRAM OXALATE 10 MG TABLET PO SCH (09:29)
[2022-02-28] MEDS: LISINOPRIL 20 MG TABLET PO SCH (09:29)
[2022-02-28] MEDS: COLLAGENASE CLOSTRIDIUM HIST. 30 GRAMS TUBE TP SCH (09:29)
[2022-02-28] MEDS: NYSTATIN 100,000 UNIT/GM TOPICAL CREAM 15 GM TUBE TP SCH ×2 (09:29→23:00)
[2022-02-28 11:49] LABS: HEMATOCRIT 37.4 % (32.4-45.2); HEMOGLOBIN 12.4 GM/dL (10.7-15.3); MCH 27.8 pg (25.7-33.7); MCHC 33.2 g/dl (32.0-36.0); MEAN CELL VOLUME 83.7 fl (80-96); MEAN PLT VOLUME 9.2 fl (7.5-11.1); PLATELET COUNT 243 10^3/uL (134-434); RBC 4.46 M/mm3 (3.60-5.2); WHITE BLOOD COUNT 9.3 K/mm3 (4.0-10.0)
[2022-02-28 12:26] LABS: BILIRUBIN,TOTAL 0.4 mg/dL (0.2-1); BLOOD UREA NITROGEN 22.8 mg/dL (7-18); CREATININE 0.9 mg/dL (0.55-1.3); TOT PROT 6.7 g/dl (6.4-8.2)
[2022-02-28] MEDS ORDERED: INSULIN (LEVEMIR) 100 UNITS/ML UNITS SQ SCH (22:00)
[2022-02-28] MEDS: ATORVASTATIN CA 80 MG TABLET (FP) PO SCH (23:00)
[2022-03-01] MEDS: PIPERACILLIN/TAZOB 3.375 GM 3.375 GM in DEXTROSE 5%-WATER - 50 ML IVPB SCH ×2 (02:45→10:56)
[2022-03-01] MEDS: INSULIN SLIDING SCALE (NOVOLOG) 1 VIAL SQ SCH ×2 (06:42→15:30)
[2022-03-01] MEDS ORDERED: INSULIN (LEVEMIR) 100 UNITS/ML UNITS SQ SCH (07:00)
[2022-03-01 09:17] LABS: BASO % 0.5 % (0-2.0); EOS % 4.2 % (0-4.5); HEMATOCRIT 35.7 % (32.4-45.2); HEMOGLOBIN 12.1 GM/dL (10.7-15.3); LYMPH % 19.5 % (8-40); MEAN CELL VOLUME 82.4 fl (80-96); MEAN PLT VOLUME 8.9 fl (7.5-11.1); MONO % 10.1 % (3.8-10.2); NEUT % 65.7 % (42.8-82.8); PLATELET COUNT 253 10^3/uL (134-434); RBC 4.33 M/mm3 (3.60-5.2); RDW 14.2 % (11.6-15.6); WHITE BLOOD COUNT 8.6 K/mm3 (4.0-10.0)
[2022-03-01] MEDS ORDERED: SILVER SULFADIAZINE 1% TOP CREAM 400 GM JAR TP SCH (10:45)
[2022-03-01] MEDS: LISINOPRIL 20 MG TABLET PO SCH (10:55)
[2022-03-01] MEDS: ESCITALOPRAM OXALATE 10 MG TABLET PO SCH (10:55)
[2022-03-01] MEDS: ENOXAPARIN NA (PORCINE) 40 MG/0.4 ML DISP.SYRIN SQ SCH (10:56)
[2022-03-01] MEDS: NYSTATIN 100,000 UNIT/GM TOPICAL CREAM 15 GM TUBE TP SCH (11:03)
[2022-03-01] MEDS: COLLAGENASE CLOSTRIDIUM HIST. 30 GRAMS TUBE TP SCH (11:03)
[2022-03-01] MEDS ORDERED: CEFTRIAXONE 2 GM in DEXTROSE 5%-WATER 100 ML IVPB ONE (15:01)
[2022-03-01 16:40] VITALS: BP 117/59; PULSE 78; TEMP 96.8
== END 2022-03-01 17:35 | disposition home or self-care (01) | DRG 638 ==
LOC: JER 09:37 → JERBED 12:48 → J8W 02-25 07:58
PROVIDERS: ADMIT Internal Medicine; ATTEND Internal Medicine
PROC: 02HV33Z Insertion of Infusion Device into Superior Vena Cava, Percutaneous Approach (ICD-10-PCS; principal; 2022-03-01)
PROC: B518ZZA Fluoroscopy of Superior Vena Cava, Guidance (ICD-10-PCS; 2022-03-01)
DX: E11.69 Type 2 diabetes mellitus with other specified complication (principal); L03.115 Cellulitis of right lower limb; L97.518 Non-pressure chronic ulcer of other part of right foot with other specified severity; M86.171 Other acute osteomyelitis, right ankle and foot; Z68.41 Body mass index [BMI] 40.0-44.9, adult; L03.116 Cellulitis of left lower limb; I10 Essential (primary) hypertension; E78.5 Hyperlipidemia, unspecified; K44.9 Diaphragmatic hernia without obstruction or gangrene; M10.9 Gout, unspecified; E11.621 Type 2 diabetes mellitus with foot ulcer; G47.33 Obstructive sleep apnea (adult) (pediatric); I51.7 Cardiomegaly; E66.01 Morbid (severe) obesity due to excess calories; E11.40 Type 2 diabetes mellitus with diabetic neuropathy, unspecified; R20.2 Paresthesia of skin; E11.65 Type 2 diabetes mellitus with hyperglycemia; F32.A Depression, unspecified; Z85.42 Personal history of malignant neoplasm of other parts of uterus
CPT/HCPCS: 36415; 36569; 80048; 80053; 82962; 83036; 83735; 84100; 85025; 85027; 85610; 85651; 85730; 86140; 86850; 86900; 86901; 87040; 87081; 93005; 93010; 99285-25; C9803-CS; G0463-25; U0003; U0005

== ENCOUNTER 2022-06-23 11:35 | Inpatient (IN) | payer MEDICARE, OTHER ==
[2022-06-23] MEDS ORDERED: PIPERACILLIN/TAZOB 4.5 GM 4.5 GM in DEXTROSE 5%-WATER 100 ML IVPB ONE (12:43)
[2022-06-23] MEDS ORDERED: VANCOMYCIN 1 GM in D5W (PRE-DOCKED) 1,000 MG/250 ML IVPB ONE (12:43)
[2022-06-23] MEDS ORDERED: VANCOMYCIN/WATER FOR INJ (PEG) 1,000 MG/200 ML BAG IVPB ONE (12:52)
[2022-06-23] MEDS ORDERED: PIPERACILLIN/TAZOB 4.5 GM 4.5 GM/100 ML BAG IVPB ONE (12:52)
[2022-06-23 13:02] LABS: BASO % 0.9 % (0-2.0); EOS % 2.1 % (0-4.5); HEMATOCRIT 36.5 % (32.4-45.2); HEMOGLOBIN 11.8 GM/dL (10.7-15.3); LYMPH % 13.2 % (8-40); MCHC 32.4 g/dl (32.0-36.0); MEAN CELL VOLUME 83.3 fl (80-96); MEAN PLT VOLUME 8.4 fl (7.5-11.1); MONO % 9.2 % (3.8-10.2); NEUT % 74.6 % (42.8-82.8); PLATELET COUNT 302 10^3/uL (134-434); RBC 4.38 M/mm3 (3.60-5.2); RDW 14.9 % (11.6-15.6); WHITE BLOOD COUNT 9.6 K/mm3 (4.0-10.0)
[2022-06-23 13:13] LABS: INR 1.09 (0.83-1.09); PROTHROMBIN TIME (PATIENT) 12.6 SEC (9.7-13.0)
[2022-06-23 13:31] LABS: CALCIUM 8.7 mg/dL (8.5-10.1)
[2022-06-23 13:32] LABS: ALBUMIN 2.6 g/dl (3.4-5.0); BLOOD UREA NITROGEN 20.1 mg/dL (7-18)
[2022-06-23 13:35] LABS: CREATININE 0.8 mg/dL (0.55-1.3)
[2022-06-23 13:37] LABS: BILIRUBIN,TOTAL 0.2 mg/dL (0.2-1); TOT PROT 6.6 g/dl (6.4-8.2)
[2022-06-23 13:40] LABS: N-TERMINAL BNP 774.8 pg/ml (5-125)
[2022-06-23 13:44] VITALS: BMI 48.8
[2022-06-23] MEDS: INSULIN SLIDING SCALE (NOVOLOG) 1 VIAL SQ SCH ×2 (16:30→22:03)
[2022-06-23 17:22] LABS: EPI CELLS 10 /uL (0-25.1); HYALINE CASTS 1 /uL (0-3.1); URINE APPEARANCE CLEAR; URINE BACTERIA 22 /uL (0-1359); URINE BILIRUBIN NEGATIVE (NEGATIVE); URINE COLOR YELLOW; URINE GLUCOSE (UA) NEGATIVE (NEGATIVE); URINE KETONE NEGATIVE (NEGATIVE); URINE LEUK ESTERASE NEGATIVE (NEGATIVE); URINE NITRITE NEGATIVE (NEGATIVE); URINE PROTEIN 2+ (NEGATIVE); URINE RBC 19 /uL (0-23.9); URINE WBC 6 /uL (0-25.8)
[2022-06-23] MEDS: COLLAGENASE CLOSTRIDIUM HIST. 30 GRAMS TUBE TP SCH (18:51)
[2022-06-23] MEDS ORDERED: FLU VACC QS2022-23(6MOS UP)/PF 60 MCG/0.5 ML SYRINGE IM ONE (21:00)
[2022-06-23] MEDS: ATORVASTATIN CA 80 MG TABLET (FP) PO SCH (22:04)
[2022-06-23] MEDS: HEPARIN NA (PORCINE) 5,000 UNITS/ML 1ML VIAL SQ SCH (22:04)
[2022-06-24] MEDS: PIPERACILLIN/TAZOB 3.375 GM 3.375 GM in DEXTROSE 5%-WATER - 50 ML IVPB SCH ×3 (02:14→17:29)
[2022-06-24] MEDS: INSULIN SLIDING SCALE (NOVOLOG) 1 VIAL SQ SCH ×4 (06:24→22:03)
[2022-06-24] MEDS: ESCITALOPRAM OXALATE 10 MG TABLET PO SCH (09:44)
[2022-06-24] MEDS: FUROSEMIDE 20 MG TABLET (FP) PO SCH (09:44)
[2022-06-24] MEDS: LISINOPRIL 20 MG TABLET PO SCH (09:45)
[2022-06-24] MEDS: HEPARIN NA (PORCINE) 5,000 UNITS/ML 1ML VIAL SQ SCH ×2 (09:47→22:03)
[2022-06-24] MEDS ORDERED: FLU VACC QS2022-23(6MOS UP)/PF 60 MCG/0.5 ML SYRINGE IM ONE (10:00)
[2022-06-24 11:06] LABS: BASO % 0.4 % (0-2.0); EOS % 2.7 % (0-4.5); MCH 27.1 pg (25.7-33.7); MCHC 32.4 g/dl (32.0-36.0); MEAN CELL VOLUME 83.4 fl (80-96); MEAN PLT VOLUME 8.4 fl (7.5-11.1); MONO % 9.4 % (3.8-10.2); NEUT % 71.5 % (42.8-82.8); PLATELET COUNT 297 10^3/uL (134-434); RBC 4.07 M/mm3 (3.60-5.2); RDW 15.3 % (11.6-15.6); WHITE BLOOD COUNT 7.5 K/mm3 (4.0-10.0)
[2022-06-24 11:26] LABS: CALCIUM 8.7 mg/dL (8.5-10.1)
[2022-06-24 11:27] LABS: ALBUMIN 2.3 g/dl (3.4-5.0); BLOOD UREA NITROGEN 20.6 mg/dL (7-18); MAGNESIUM 1.6 mg/dL (1.8-2.4)
[2022-06-24 11:30] LABS: CREATININE 0.9 mg/dL (0.55-1.3); PHOSPHOROUS 3.4 mg/dL (2.5-4.9)
[2022-06-24 11:31] LABS: TOT PROT 5.9 g/dl (6.4-8.2)
[2022-06-24 11:32] LABS: BILIRUBIN,TOTAL 0.3 mg/dL (0.2-1)
[2022-06-24] MEDS: COLLAGENASE CLOSTRIDIUM HIST. 30 GRAMS TUBE TP SCH ×2 (14:56→17:30)
[2022-06-24] MEDS: VANCOMYCIN/WATER 1250 MG 1,250 MG/250 ML BAG IVPB SCH (22:02)
[2022-06-24] MEDS: ATORVASTATIN CA 80 MG TABLET (FP) PO SCH (22:03)
[2022-06-25] MEDS: PIPERACILLIN/TAZOB 3.375 GM 3.375 GM in DEXTROSE 5%-WATER - 50 ML IVPB SCH ×3 (01:38→17:30)
[2022-06-25] MEDS: INSULIN SLIDING SCALE (NOVOLOG) 1 VIAL SQ SCH ×4 (06:35→22:22)
[2022-06-25] MEDS: LISINOPRIL 20 MG TABLET PO SCH (10:00)
[2022-06-25] MEDS: ESCITALOPRAM OXALATE 10 MG TABLET PO SCH (10:01)
[2022-06-25] MEDS: FUROSEMIDE 20 MG TABLET (FP) PO SCH (10:01)
[2022-06-25] MEDS: VANCOMYCIN/WATER 1250 MG 1,250 MG/250 ML BAG IVPB SCH ×2 (10:02→22:21)
[2022-06-25] MEDS: HEPARIN NA (PORCINE) 5,000 UNITS/ML 1ML VIAL SQ SCH ×2 (10:02→22:21)
[2022-06-25] MEDS: COLLAGENASE CLOSTRIDIUM HIST. 30 GRAMS TUBE TP SCH (18:51)
[2022-06-25] MEDS: ATORVASTATIN CA 80 MG TABLET (FP) PO SCH (22:21)
[2022-06-26] MEDS: PIPERACILLIN/TAZOB 3.375 GM 3.375 GM in DEXTROSE 5%-WATER - 50 ML IVPB SCH ×2 (01:59→10:09)
[2022-06-26] MEDS: INSULIN SLIDING SCALE (NOVOLOG) 1 VIAL SQ SCH ×4 (06:23→22:26)
[2022-06-26 10:09] LABS: BASO % 0.7 % (0-2.0); EOS % 2.7 % (0-4.5); HEMATOCRIT 34.4 % (32.4-45.2); HEMOGLOBIN 11.4 GM/dL (10.7-15.3); LYMPH % 7.9 % (8-40); MCH 27.1 pg (25.7-33.7); MEAN CELL VOLUME 82.2 fl (80-96); MEAN PLT VOLUME 8.6 fl (7.5-11.1); MONO % 12.7 % (3.8-10.2); PLATELET COUNT 290 10^3/uL (134-434); RBC 4.19 M/mm3 (3.60-5.2); RDW 15.5 % (11.6-15.6); WHITE BLOOD COUNT 8.6 K/mm3 (4.0-10.0)
[2022-06-26] MEDS: HEPARIN NA (PORCINE) 5,000 UNITS/ML 1ML VIAL SQ SCH ×2 (10:09→22:24)
[2022-06-26] MEDS: AMINO ACIDS/PROTEIN HYDROLYS 30 ML LIQUID.PKT PO SCH (10:09)
[2022-06-26] MEDS: LISINOPRIL 20 MG TABLET PO SCH (10:10)
[2022-06-26] MEDS: ASCORBIC ACID 500 MG TABLET (FP) PO SCH (10:10)
[2022-06-26] MEDS: ESCITALOPRAM OXALATE 10 MG TABLET PO SCH (10:10)
[2022-06-26] MEDS: FUROSEMIDE 20 MG TABLET (FP) PO SCH (10:10)
[2022-06-26] MEDS: COLLAGENASE CLOSTRIDIUM HIST. 30 GRAMS TUBE TP SCH (10:12)
[2022-06-26 10:45] LABS: BILIRUBIN,TOTAL 0.4 mg/dL (0.2-1); TOT PROT 6.2 g/dl (6.4-8.2)
[2022-06-26 10:47] LABS: CALCIUM 8.5 mg/dL (8.5-10.1)
[2022-06-26 10:48] LABS: ALBUMIN 2.4 g/dl (3.4-5.0); BLOOD UREA NITROGEN 22.3 mg/dL (7-18)
[2022-06-26] MEDS: VANCOMYCIN/WATER 1250 MG 1,250 MG/250 ML BAG IVPB SCH (12:55)
[2022-06-26] MEDS: CEFTRIAXONE 2 GM in DEXTROSE 5%-WATER 100 ML IVPB SCH (17:37)
[2022-06-26] MEDS: ATORVASTATIN CA 80 MG TABLET (FP) PO SCH (22:26)
[2022-06-27] MEDS: INSULIN SLIDING SCALE (NOVOLOG) 1 VIAL SQ SCH ×4 (07:05→21:45)
[2022-06-27] MEDS: AMINO ACIDS/PROTEIN HYDROLYS 30 ML LIQUID.PKT PO SCH (09:45)
[2022-06-27] MEDS: HEPARIN NA (PORCINE) 5,000 UNITS/ML 1ML VIAL SQ SCH ×2 (09:45→21:38)
[2022-06-27] MEDS: ASCORBIC ACID 500 MG TABLET (FP) PO SCH (09:48)
[2022-06-27] MEDS: LISINOPRIL 20 MG TABLET PO SCH (09:48)
[2022-06-27] MEDS: ESCITALOPRAM OXALATE 10 MG TABLET PO SCH (09:49)
[2022-06-27] MEDS: CEFTRIAXONE 2 GM in DEXTROSE 5%-WATER 100 ML IVPB SCH (09:49)
[2022-06-27] MEDS: FUROSEMIDE 20 MG TABLET (FP) PO SCH (09:49)
[2022-06-27] MEDS: COLLAGENASE CLOSTRIDIUM HIST. 30 GRAMS TUBE TP SCH (09:50)
[2022-06-27 12:05] LABS: HEMATOCRIT 34.7 % (32.4-45.2); HEMOGLOBIN 11.1 GM/dL (10.7-15.3); MCH 26.5 pg (25.7-33.7); MCHC 32.1 g/dl (32.0-36.0); MEAN CELL VOLUME 82.7 fl (80-96); MEAN PLT VOLUME 8.8 fl (7.5-11.1); PLATELET COUNT 262 10^3/uL (134-434); RBC 4.19 M/mm3 (3.60-5.2); RDW 15.4 % (11.6-15.6); WHITE BLOOD COUNT 5.2 K/mm3 (4.0-10.0)
[2022-06-27 12:37] LABS: BLOOD UREA NITROGEN 23.2 mg/dL (7-18)
[2022-06-27 12:39] LABS: ANISOCYTOSIS 0; MACROCYTOSIS 0
[2022-06-27 12:40] LABS: CREATININE 0.9 mg/dL (0.55-1.3)
[2022-06-27 12:47] LABS: CALCIUM 8.4 mg/dL (8.5-10.1)
[2022-06-27] MEDS: ATORVASTATIN CA 80 MG TABLET (FP) PO SCH (21:38)
[2022-06-27] MEDS: INSULIN (LEVEMIR) 100 UNITS/ML UNITS SQ SCH (21:40)
[2022-06-28] MEDS: INSULIN SLIDING SCALE (NOVOLOG) 1 VIAL SQ SCH ×4 (06:11→21:18)
[2022-06-28] MEDS: INSULIN (LEVEMIR) 100 UNITS/ML UNITS SQ SCH ×2 (06:13→21:18)
[2022-06-28] MEDS: HEPARIN NA (PORCINE) 5,000 UNITS/ML 1ML VIAL SQ SCH ×2 (09:40→21:20)
[2022-06-28] MEDS: ASCORBIC ACID 500 MG TABLET (FP) PO SCH (09:40)
[2022-06-28] MEDS: AMINO ACIDS/PROTEIN HYDROLYS 30 ML LIQUID.PKT PO SCH (09:40)
[2022-06-28] MEDS: LISINOPRIL 20 MG TABLET PO SCH (09:40)
[2022-06-28] MEDS: FUROSEMIDE 20 MG TABLET (FP) PO SCH (09:40)
[2022-06-28] MEDS: COLLAGENASE CLOSTRIDIUM HIST. 30 GRAMS TUBE TP SCH (09:41)
[2022-06-28] MEDS: CEFTRIAXONE 2 GM in DEXTROSE 5%-WATER 100 ML IVPB SCH (09:41)
[2022-06-28] MEDS: ESCITALOPRAM OXALATE 10 MG TABLET PO SCH (09:41)
[2022-06-28] MEDS: ATORVASTATIN CA 80 MG TABLET (FP) PO SCH (21:20)
[2022-06-29] MEDS: INSULIN SLIDING SCALE (NOVOLOG) 1 VIAL SQ SCH ×4 (06:08→21:37)
[2022-06-29] MEDS: INSULIN (LEVEMIR) 100 UNITS/ML UNITS SQ SCH ×2 (06:32→21:38)
[2022-06-29] MEDS: CEFTRIAXONE 2 GM in DEXTROSE 5%-WATER 100 ML IVPB SCH (10:21)
[2022-06-29] MEDS: LISINOPRIL 20 MG TABLET PO SCH (10:21)
[2022-06-29] MEDS: AMINO ACIDS/PROTEIN HYDROLYS 30 ML LIQUID.PKT PO SCH (10:21)
[2022-06-29] MEDS: ASCORBIC ACID 500 MG TABLET (FP) PO SCH (10:22)
[2022-06-29] MEDS: HEPARIN NA (PORCINE) 5,000 UNITS/ML 1ML VIAL SQ SCH (10:22)
[2022-06-29] MEDS: COLLAGENASE CLOSTRIDIUM HIST. 30 GRAMS TUBE TP SCH (10:22)
[2022-06-29] MEDS: ESCITALOPRAM OXALATE 10 MG TABLET PO SCH (10:22)
[2022-06-29] MEDS: FUROSEMIDE 20 MG TABLET (FP) PO SCH (10:22)
[2022-06-29] MEDS ORDERED: ENOXAPARIN NA (PORCINE) 40 MG/0.4 ML DISP.SYRIN SQ SCH (12:15)
[2022-06-29 13:00] LABS: HEMATOCRIT 37.2 % (32.4-45.2); HEMOGLOBIN 11.9 GM/dL (10.7-15.3); MCH 26.6 pg (25.7-33.7); MEAN CELL VOLUME 83.2 fl (80-96); MEAN PLT VOLUME 8.4 fl (7.5-11.1); PLATELET COUNT 263 10^3/uL (134-434); RBC 4.47 M/mm3 (3.60-5.2); RDW 15.7 % (11.6-15.6); WHITE BLOOD COUNT 3.7 K/mm3 (4.0-10.0)
[2022-06-29 13:20] LABS: CHLORIDE 104 mmol/L (98-107); SODIUM 142 mmol/L (136-145)
[2022-06-29 13:22] LABS: CALCIUM 8.3 mg/dL (8.5-10.1)
[2022-06-29 13:23] LABS: ALBUMIN 2.3 g/dl (3.4-5.0); ANION GAP 7 MMOL/L (8-16); BLOOD UREA NITROGEN 30.5 mg/dL (7-18); CO2 31 mmol/L (21-32); GLUCOSE,RANDOM 188 mg/dL (74-106); MAGNESIUM 1.6 mg/dL (1.8-2.4)
[2022-06-29 13:26] LABS: CREATININE 0.9 mg/dL (0.55-1.3); PHOSPHOROUS 3.6 mg/dL (2.5-4.9); SGOT/AST 36 U/L (15-37); SGPT/ALT 30 U/L (13-61)
[2022-06-29 13:27] LABS: BILIRUBIN,TOTAL < 0.1 mg/dL (0.2-1); TOT PROT 6.3 g/dl (6.4-8.2)
[2022-06-29 13:28] LABS: ALK PHOS 70 U/L (45-117)
[2022-06-29] MEDS: METOPROLOL TARTRATE 50 MG TABLET (FP) PO SCH (21:37)
[2022-06-29] MEDS: ATORVASTATIN CA 80 MG TABLET (FP) PO SCH (21:37)
[2022-06-29] MEDS: ENOXAPARIN NA (PORCINE) 40 MG/0.4 ML DISP.SYRIN SQ SCH (21:37)
[2022-06-30] MEDS: INSULIN SLIDING SCALE (NOVOLOG) 1 VIAL SQ SCH ×4 (06:09→21:07)
[2022-06-30] MEDS: INSULIN (LEVEMIR) 100 UNITS/ML UNITS SQ SCH ×2 (06:47→21:04)
[2022-06-30] MEDS ORDERED: ENOXAPARIN NA (PORCINE) 40 MG/0.4 ML DISP.SYRIN SQ SCH (10:00)
[2022-06-30] MEDS: ENOXAPARIN NA (PORCINE) 40 MG/0.4 ML DISP.SYRIN SQ SCH ×2 (10:18→21:01)
[2022-06-30] MEDS: LISINOPRIL 20 MG TABLET PO SCH (10:18)
[2022-06-30] MEDS: METOPROLOL TARTRATE 50 MG TABLET (FP) PO SCH ×2 (10:19→21:01)
[2022-06-30] MEDS: ASCORBIC ACID 500 MG TABLET (FP) PO SCH (10:19)
[2022-06-30] MEDS: ESCITALOPRAM OXALATE 10 MG TABLET PO SCH (10:22)
[2022-06-30] MEDS: AMINO ACIDS/PROTEIN HYDROLYS 30 ML LIQUID.PKT PO SCH (10:23)
[2022-06-30] MEDS: FUROSEMIDE 20 MG TABLET (FP) PO SCH (10:23)
[2022-06-30] MEDS: CEFTRIAXONE 2 GM in DEXTROSE 5%-WATER 100 ML IVPB SCH (10:24)
[2022-06-30 16:01] LABS: HEMATOCRIT 36.5 % (32.4-45.2); HEMOGLOBIN 11.8 GM/dL (10.7-15.3); MCH 26.7 pg (25.7-33.7); MCHC 32.3 g/dl (32.0-36.0); MEAN CELL VOLUME 82.8 fl (80-96); MEAN PLT VOLUME 8.5 fl (7.5-11.1); PLATELET COUNT 237 10^3/uL (134-434); RBC 4.41 M/mm3 (3.60-5.2); RDW 15.3 % (11.6-15.6)
[2022-06-30 16:21] LABS: BLOOD UREA NITROGEN 32.3 mg/dL (7-18); CALCIUM 7.8 mg/dL (8.5-10.1); MAGNESIUM 1.7 mg/dL (1.8-2.4)
[2022-06-30 16:25] LABS: CREATININE 0.9 mg/dL (0.55-1.3); PHOSPHOROUS 3.4 mg/dL (2.5-4.9)
[2022-06-30] MEDS: COLLAGENASE CLOSTRIDIUM HIST. 30 GRAMS TUBE TP SCH (17:36)
[2022-06-30] MEDS ORDERED: MAGNESIUM SULF 50% (8.12 MEQ/2 ML-1 GM VIAL) IVPB ONE (19:24)
[2022-06-30] MEDS: ATORVASTATIN CA 80 MG TABLET (FP) PO SCH (21:01)
[2022-07-01] MEDS: INSULIN (LEVEMIR) 100 UNITS/ML UNITS SQ SCH ×2 (06:28→22:27)
[2022-07-01] MEDS: INSULIN SLIDING SCALE (NOVOLOG) 1 VIAL SQ SCH ×4 (06:31→22:35)
[2022-07-01] MEDS: ASCORBIC ACID 500 MG TABLET (FP) PO SCH (09:46)
[2022-07-01] MEDS: FUROSEMIDE 20 MG TABLET (FP) PO SCH (09:46)
[2022-07-01] MEDS: AMOX TR/POT CLAV 875MG/125MG TABLETS (FP) PO SCH ×2 (09:46→17:46)
[2022-07-01] MEDS: ESCITALOPRAM OXALATE 10 MG TABLET PO SCH ×2 (09:47→22:27)
[2022-07-01] MEDS: METOPROLOL TARTRATE 50 MG TABLET (FP) PO SCH ×2 (09:48→22:26)
[2022-07-01] MEDS: ENOXAPARIN NA (PORCINE) 40 MG/0.4 ML DISP.SYRIN SQ SCH ×2 (09:49→22:27)
[2022-07-01] MEDS: AMINO ACIDS/PROTEIN HYDROLYS 30 ML LIQUID.PKT PO SCH (09:49)
[2022-07-01] MEDS: LISINOPRIL 20 MG TABLET PO SCH (09:52)
[2022-07-01 10:00] LABS: HEMATOCRIT 37.7 % (32.4-45.2); HEMOGLOBIN 12.1 GM/dL (10.7-15.3); MCH 26.8 pg (25.7-33.7); MCHC 32.2 g/dl (32.0-36.0); MEAN PLT VOLUME 8.6 fl (7.5-11.1); PLATELET COUNT 225 10^3/uL (134-434); RBC 4.54 M/mm3 (3.60-5.2); RDW 15.1 % (11.6-15.6); WHITE BLOOD COUNT 3.8 K/mm3 (4.0-10.0)
[2022-07-01] MEDS: COLLAGENASE CLOSTRIDIUM HIST. 30 GRAMS TUBE TP SCH (10:13)
[2022-07-01 11:00] LABS: BLOOD UREA NITROGEN 33.7 mg/dL (7-18); CALCIUM 8.2 mg/dL (8.5-10.1); MAGNESIUM 2.1 mg/dL (1.8-2.4)
[2022-07-01 11:04] LABS: CREATININE 0.9 mg/dL (0.55-1.3)
[2022-07-01] MEDS ORDERED: INSULIN SLIDING SCALE (NOVOLOG) 1 VIAL SQ ONE (12:25)
[2022-07-01] MEDS: ATORVASTATIN CA 80 MG TABLET (FP) PO SCH (22:26)
[2022-07-02] MEDS: INSULIN SLIDING SCALE (NOVOLOG) 1 VIAL SQ SCH ×4 (06:13→23:01)
[2022-07-02] MEDS: INSULIN (LEVEMIR) 100 UNITS/ML UNITS SQ SCH ×2 (06:14→21:38)
[2022-07-02] MEDS: AMINO ACIDS/PROTEIN HYDROLYS 30 ML LIQUID.PKT PO SCH (08:47)
[2022-07-02] MEDS: AMOX TR/POT CLAV 875MG/125MG TABLETS (FP) PO SCH ×2 (08:47→18:23)
[2022-07-02] MEDS: LISINOPRIL 20 MG TABLET PO SCH (09:56)
[2022-07-02] MEDS: ASCORBIC ACID 500 MG TABLET (FP) PO SCH (09:56)
[2022-07-02] MEDS: FUROSEMIDE 20 MG TABLET (FP) PO SCH (09:56)
[2022-07-02] MEDS: ESCITALOPRAM OXALATE 10 MG TABLET PO SCH ×2 (09:56→21:37)
[2022-07-02] MEDS: ENOXAPARIN NA (PORCINE) 40 MG/0.4 ML DISP.SYRIN SQ SCH ×2 (09:58→21:37)
[2022-07-02] MEDS: METOPROLOL TARTRATE 50 MG TABLET (FP) PO SCH ×2 (10:06→21:37)
[2022-07-02 10:17] LABS: HEMATOCRIT 36.6 % (32.4-45.2); HEMOGLOBIN 11.7 GM/dL (10.7-15.3); MCH 26.6 pg (25.7-33.7); MCHC 32.1 g/dl (32.0-36.0); MEAN PLT VOLUME 8.9 fl (7.5-11.1); PLATELET COUNT 229 10^3/uL (134-434); RBC 4.41 M/mm3 (3.60-5.2); RDW 15.3 % (11.6-15.6); WHITE BLOOD COUNT 3.8 K/mm3 (4.0-10.0)
[2022-07-02] MEDS: COLLAGENASE CLOSTRIDIUM HIST. 30 GRAMS TUBE TP SCH (10:30)
[2022-07-02 10:41] LABS: BLOOD UREA NITROGEN 34.5 mg/dL (7-18)
[2022-07-02 10:43] LABS: CALCIUM 8.6 mg/dL (8.5-10.1)
[2022-07-02 10:44] LABS: MAGNESIUM 2.1 mg/dL (1.8-2.4)
[2022-07-02 10:45] LABS: CREATININE 0.9 mg/dL (0.55-1.3); PHOSPHOROUS 2.7 mg/dL (2.5-4.9)
[2022-07-02] MEDS ORDERED: REMDESIVIR 200 MG in SODIUM CHLORIDE 250 ML IVPB ONE (17:19)
[2022-07-02] MEDS: ATORVASTATIN CA 80 MG TABLET (FP) PO SCH (21:37)
[2022-07-03] MEDS: INSULIN (LEVEMIR) 100 UNITS/ML UNITS SQ SCH ×2 (06:17→21:46)
[2022-07-03] MEDS: INSULIN SLIDING SCALE (NOVOLOG) 1 VIAL SQ SCH ×4 (06:32→21:54)
[2022-07-03 09:24] LABS: HEMATOCRIT 37.5 % (32.4-45.2); MCH 26.2 pg (25.7-33.7); MCHC 32.1 g/dl (32.0-36.0); MEAN CELL VOLUME 81.4 fl (80-96); MEAN PLT VOLUME 8.5 fl (7.5-11.1); PLATELET COUNT 229 10^3/uL (134-434); RDW 15.4 % (11.6-15.6); WHITE BLOOD COUNT 3.4 K/mm3 (4.0-10.0)
[2022-07-03] MEDS: AMINO ACIDS/PROTEIN HYDROLYS 30 ML LIQUID.PKT PO SCH (09:45)
[2022-07-03] MEDS: ESCITALOPRAM OXALATE 10 MG TABLET PO SCH ×2 (09:46→21:46)
[2022-07-03] MEDS: ENOXAPARIN NA (PORCINE) 40 MG/0.4 ML DISP.SYRIN SQ SCH ×2 (09:46→21:44)
[2022-07-03] MEDS: ASCORBIC ACID 500 MG TABLET (FP) PO SCH (09:47)
[2022-07-03] MEDS: AMOX TR/POT CLAV 875MG/125MG TABLETS (FP) PO SCH ×2 (09:47→18:18)
[2022-07-03] MEDS: FUROSEMIDE 20 MG TABLET (FP) PO SCH (09:47)
[2022-07-03] MEDS: LISINOPRIL 20 MG TABLET PO SCH (09:48)
[2022-07-03] MEDS: METOPROLOL TARTRATE 50 MG TABLET (FP) PO SCH ×2 (09:48→22:39)
[2022-07-03 10:38] LABS: PHOSPHOROUS 2.9 mg/dL (2.5-4.9)
[2022-07-03] MEDS ORDERED: REMDESIVIR 100 MG in SODIUM CHLORIDE 270 ML IVPB SCH (18:00)
[2022-07-03] MEDS: COLLAGENASE CLOSTRIDIUM HIST. 30 GRAMS TUBE TP SCH (18:18)
[2022-07-03] MEDS: ATORVASTATIN CA 80 MG TABLET (FP) PO SCH (21:46)
[2022-07-04] MEDS: INSULIN (LEVEMIR) 100 UNITS/ML UNITS SQ SCH ×2 (06:06→21:23)
[2022-07-04] MEDS: INSULIN SLIDING SCALE (NOVOLOG) 1 VIAL SQ SCH ×4 (06:08→21:23)
[2022-07-04] MEDS: AMOX TR/POT CLAV 875MG/125MG TABLETS (FP) PO SCH ×2 (10:05→17:24)
[2022-07-04] MEDS: AMINO ACIDS/PROTEIN HYDROLYS 30 ML LIQUID.PKT PO SCH (10:06)
[2022-07-04] MEDS: LISINOPRIL 20 MG TABLET PO SCH (10:06)
[2022-07-04] MEDS: FUROSEMIDE 20 MG TABLET (FP) PO SCH (10:08)
[2022-07-04] MEDS: ESCITALOPRAM OXALATE 10 MG TABLET PO SCH ×2 (10:08→21:24)
[2022-07-04] MEDS: METOPROLOL TARTRATE 50 MG TABLET (FP) PO SCH ×2 (10:08→21:25)
[2022-07-04] MEDS: ASCORBIC ACID 500 MG TABLET (FP) PO SCH (10:09)
[2022-07-04] MEDS: ENOXAPARIN NA (PORCINE) 40 MG/0.4 ML DISP.SYRIN SQ SCH ×2 (10:15→21:25)
[2022-07-04] MEDS ORDERED: INSULIN SLIDING SCALE (NOVOLOG) 1 VIAL SQ ONE (11:39)
[2022-07-04] MEDS ORDERED: REMDESIVIR 100 MG in SODIUM CHLORIDE 250 ML IVPB SCH (13:00)
[2022-07-04] MEDS: COLLAGENASE CLOSTRIDIUM HIST. 30 GRAMS TUBE TP SCH (19:00)
[2022-07-04] MEDS: ATORVASTATIN CA 80 MG TABLET (FP) PO SCH (21:25)
[2022-07-05] MEDS: INSULIN SLIDING SCALE (NOVOLOG) 1 VIAL SQ SCH ×4 (06:21→22:40)
[2022-07-05] MEDS: INSULIN (LEVEMIR) 100 UNITS/ML UNITS SQ SCH ×2 (06:21→22:40)
[2022-07-05] MEDS ORDERED: SODIUM CHLORIDE 0.45% 1,000 ML IV SCH (08:30)
[2022-07-05] MEDS: METOPROLOL TARTRATE 50 MG TABLET (FP) PO SCH ×2 (09:31→22:41)
[2022-07-05] MEDS: AMINO ACIDS/PROTEIN HYDROLYS 30 ML LIQUID.PKT PO SCH (09:31)
[2022-07-05] MEDS: ESCITALOPRAM OXALATE 10 MG TABLET PO SCH ×2 (09:31→22:42)
[2022-07-05] MEDS: ASCORBIC ACID 500 MG TABLET (FP) PO SCH (09:32)
[2022-07-05] MEDS: AMOX TR/POT CLAV 875MG/125MG TABLETS (FP) PO SCH ×2 (09:34→17:30)
[2022-07-05 11:20] LABS: HEMATOCRIT 37.8 % (32.4-45.2); HEMOGLOBIN 12.4 GM/dL (10.7-15.3); MCH 27.1 pg (25.7-33.7); MCHC 32.9 g/dl (32.0-36.0); MEAN CELL VOLUME 82.3 fl (80-96); MEAN PLT VOLUME 8.7 fl (7.5-11.1); PLATELET COUNT 254 10^3/uL (134-434); RBC 4.59 M/mm3 (3.60-5.2); RDW 15.2 % (11.6-15.6); WHITE BLOOD COUNT 3.4 K/mm3 (4.0-10.0)
[2022-07-05 11:41] LABS: CALCIUM 8.3 mg/dL (8.5-10.1)
[2022-07-05 11:42] LABS: BLOOD UREA NITROGEN 30.2 mg/dL (7-18)
[2022-07-05 11:43] LABS: ALBUMIN 2.5 g/dl (3.4-5.0)
[2022-07-05 11:45] LABS: CREATININE 0.8 mg/dL (0.55-1.3)
[2022-07-05 11:46] LABS: TOT PROT 6.6 g/dl (6.4-8.2)
[2022-07-05 11:47] LABS: BILIRUBIN,TOTAL 0.2 mg/dL (0.2-1)
[2022-07-05] MEDS: LISINOPRIL 20 MG TABLET PO SCH ×2 (12:36→22:42)
[2022-07-05] MEDS: FUROSEMIDE 20 MG TABLET (FP) PO SCH (12:38)
[2022-07-05] MEDS: COLLAGENASE CLOSTRIDIUM HIST. 30 GRAMS TUBE TP SCH (17:41)
[2022-07-05] MEDS ORDERED: LISINOPRIL 20 MG TABLET PO SCH (19:15)
[2022-07-05] MEDS: ATORVASTATIN CA 80 MG TABLET (FP) PO SCH (22:41)
[2022-07-06] MEDS: INSULIN SLIDING SCALE (NOVOLOG) 1 VIAL SQ SCH ×4 (06:19→23:12)
[2022-07-06] MEDS: INSULIN (LEVEMIR) 100 UNITS/ML UNITS SQ SCH ×2 (06:20→23:10)
[2022-07-06] MEDS: AMOX TR/POT CLAV 875MG/125MG TABLETS (FP) PO SCH ×2 (08:37→16:52)
[2022-07-06] MEDS: AMINO ACIDS/PROTEIN HYDROLYS 30 ML LIQUID.PKT PO SCH (08:37)
[2022-07-06] MEDS: ESCITALOPRAM OXALATE 10 MG TABLET PO SCH ×2 (10:14→23:12)
[2022-07-06] MEDS: ASCORBIC ACID 500 MG TABLET (FP) PO SCH (10:14)
[2022-07-06] MEDS: FUROSEMIDE 20 MG TABLET (FP) PO SCH (10:14)
[2022-07-06] MEDS: METOPROLOL TARTRATE 50 MG TABLET (FP) PO SCH ×2 (10:15→23:11)
[2022-07-06] MEDS: LISINOPRIL 20 MG TABLET PO SCH (10:15)
[2022-07-06] MEDS: COLLAGENASE CLOSTRIDIUM HIST. 30 GRAMS TUBE TP SCH (10:15)
[2022-07-06 11:44] LABS: HEMOGLOBIN 12.3 GM/dL (10.7-15.3); MCH 26.7 pg (25.7-33.7); MCHC 32.3 g/dl (32.0-36.0); MEAN CELL VOLUME 82.7 fl (80-96); MEAN PLT VOLUME 8.9 fl (7.5-11.1); PLATELET COUNT 253 10^3/uL (134-434); RBC 4.59 M/mm3 (3.60-5.2); RDW 15.4 % (11.6-15.6); WHITE BLOOD COUNT 4.6 K/mm3 (4.0-10.0)
[2022-07-06 12:10] LABS: CALCIUM 8.3 mg/dL (8.5-10.1)
[2022-07-06 12:11] LABS: ALBUMIN 2.4 g/dl (3.4-5.0); BLOOD UREA NITROGEN 36.2 mg/dL (7-18)
[2022-07-06 12:14] LABS: CREATININE 0.9 mg/dL (0.55-1.3)
[2022-07-06 12:15] LABS: TOT PROT 6.2 g/dl (6.4-8.2)
[2022-07-06 12:16] LABS: BILIRUBIN,TOTAL 0.2 mg/dL (0.2-1)
[2022-07-06] MEDS: ATORVASTATIN CA 80 MG TABLET (FP) PO SCH (23:11)
[2022-07-07] MEDS: INSULIN SLIDING SCALE (NOVOLOG) 1 VIAL SQ SCH ×2 (06:30→11:29)
[2022-07-07] MEDS: INSULIN (LEVEMIR) 100 UNITS/ML UNITS SQ SCH (06:31)
[2022-07-07] MEDS: AMOX TR/POT CLAV 875MG/125MG TABLETS (FP) PO SCH (08:14)
[2022-07-07] MEDS: AMINO ACIDS/PROTEIN HYDROLYS 30 ML LIQUID.PKT PO SCH (08:14)
[2022-07-07 08:56] VITALS: BP 145/77; PULSE 57; RESP 19; TEMP 98.2
[2022-07-07] MEDS: LISINOPRIL 20 MG TABLET PO SCH (09:14)
[2022-07-07] MEDS: METOPROLOL TARTRATE 50 MG TABLET (FP) PO SCH (09:14)
[2022-07-07] MEDS: ESCITALOPRAM OXALATE 10 MG TABLET PO SCH (09:14)
[2022-07-07] MEDS: ASCORBIC ACID 500 MG TABLET (FP) PO SCH (09:14)
[2022-07-07] MEDS: FUROSEMIDE 20 MG TABLET (FP) PO SCH (09:14)
[2022-07-07] MEDS: COLLAGENASE CLOSTRIDIUM HIST. 30 GRAMS TUBE TP SCH (09:15)
== END 2022-07-07 11:12 | disposition home health service (06) | DRG 637 ==
LOC: JER 11:35 → JERBED 14:11 → J5S 17:27 → OBSVTOIN 06-27 09:19
PROVIDERS: ADMIT Internal Medicine; ATTEND Internal Medicine
PROC: XW033E5 Introduction of Remdesivir Anti-infective into Peripheral Vein, Percutaneous Approach, New Technology Group 5 (ICD-10-PCS; principal; 2022-07-02)
DX: E11.621 Type 2 diabetes mellitus with foot ulcer (principal); U07.1 COVID-19; L03.116 Cellulitis of left lower limb; M86.9 Osteomyelitis, unspecified; Z68.42 Body mass index [BMI] 45.0-49.9, adult; I50.32 Chronic diastolic (congestive) heart failure; I10 Essential (primary) hypertension; E11.40 Type 2 diabetes mellitus with diabetic neuropathy, unspecified; E78.5 Hyperlipidemia, unspecified; E88.81 Metabolic syndrome and other insulin resistance; I87.2 Venous insufficiency (chronic) (peripheral); F41.9 Anxiety disorder, unspecified; E66.01 Morbid (severe) obesity due to excess calories; N17.9 Acute kidney failure, unspecified; A49.01 Methicillin susceptible Staphylococcus aureus infection, unspecified site; F32.A Depression, unspecified
CPT/HCPCS: 0241U-QW; 36415; 71045-TC-FY; 73610-TC-LT-FY; 73630-TC-LT; 78315-TC; 80048; 80053; 81003; 82962; 83735; 83880; 84100; 85025; 85027; 85610; 85651; 85730; 86140; 87070; 87086; 87186; 87205; 93925-TC; 97116-GP; 97162-GP; 99285-25; A9503; C9399; C9803-CS; G0008; G0378; G0480; J1644; Q2036; U0003; U0005

== ENCOUNTER 2022-08-31 12:41 | Observation (INO) | payer MEDICARE, OTHER ==
[2022-08-31 15:10] LABS: BASO % 0.3 % (0-2.0); EOS % 1.9 % (0-4.5); HEMATOCRIT 35.2 % (32.4-45.2); HEMOGLOBIN 11.8 GM/dL (10.7-15.3); LYMPH % 15.5 % (8-40); MCH 27.7 pg (25.7-33.7); MCHC 33.4 g/dl (32.0-36.0); MEAN CELL VOLUME 82.8 fl (80-96); MEAN PLT VOLUME 8.4 fl (7.5-11.1); MONO % 7.9 % (3.8-10.2); NEUT % 74.4 % (42.8-82.8); PLATELET COUNT 294 10^3/uL (134-434); RBC 4.25 M/mm3 (3.60-5.2); RDW 17.1 % (11.6-15.6); WHITE BLOOD COUNT 10.3 K/mm3 (4.0-10.0)
[2022-08-31 15:18] LABS: INR 1.05 (0.83-1.09); PROTHROMBIN TIME (PATIENT) 12.2 SEC (9.7-13.0)
[2022-08-31 15:21] LABS: ACTIVATED PTT 34.1 SECONDS (25.2-36.5)
[2022-08-31 15:29] LABS: BLOOD UREA NITROGEN 26.5 mg/dL (7-18)
[2022-08-31 15:33] LABS: CREATININE 0.9 mg/dL (0.55-1.3)
[2022-08-31 15:34] LABS: BILIRUBIN,TOTAL 0.6 mg/dL (0.2-1); TOT PROT 7.1 g/dl (6.4-8.2)
[2022-08-31 16:38] LABS: ERYTHROCYTE SEDIMENTATION RATE 47 mm/hr (0-30)
[2022-08-31] MEDS ORDERED: PATIENT'S OWN MEDICATION (NON-FORMULARY) (Dulaglutide [Trulicity] 1.5 MG/0.5 ML Pen.Injctr SQ SCH (18:45)
[2022-08-31] MEDS: HEPARIN NA (PORCINE) 5,000 UNITS/ML 1ML VIAL SQ SCH (21:43)
[2022-08-31] MEDS: METOPROLOL TARTRATE 50 MG TABLET (FP) PO SCH (21:43)
[2022-08-31] MEDS: ATORVASTATIN CA 80 MG TABLET (FP) PO SCH (21:44)
[2022-08-31] MEDS: INSULIN (LEVEMIR) 100 UNITS/ML UNITS SQ SCH (21:44)
[2022-09-01] MEDS: HEPARIN NA (PORCINE) 5,000 UNITS/ML 1ML VIAL SQ SCH ×3 (05:57→22:34)
[2022-09-01] MEDS: GLIMEPIRIDE 2 MG TABLET PO SCH (06:01)
[2022-09-01] MEDS: metFORMIN HCL 500 MG TABLET (FP) PO SCH ×2 (06:01→17:02)
[2022-09-01] MEDS: INSULIN (LEVEMIR) 100 UNITS/ML UNITS SQ SCH ×2 (06:11→22:37)
[2022-09-01 08:24] LABS: HEMATOCRIT 36.7 % (32.4-45.2); HEMOGLOBIN 12.1 GM/dL (10.7-15.3); MCH 27.2 pg (25.7-33.7); MCHC 32.9 g/dl (32.0-36.0); MEAN CELL VOLUME 82.8 fl (80-96); MEAN PLT VOLUME 8.8 fl (7.5-11.1); PLATELET COUNT 297 10^3/uL (134-434); RBC 4.43 M/mm3 (3.60-5.2); RDW 17.1 % (11.6-15.6); WHITE BLOOD COUNT 8.9 K/mm3 (4.0-10.0)
[2022-09-01 08:44] LABS: CALCIUM 9.1 mg/dL (8.5-10.1)
[2022-09-01 08:47] LABS: BLOOD UREA NITROGEN 30.4 mg/dL (7-18)
[2022-09-01] MEDS ORDERED: PATIENT'S OWN MEDICATION (NON-FORMULARY) (Omadacycline Tosylate [Nuzyra] 150 MG Tablet) PO SCH (10:00)
[2022-09-01] MEDS: METOPROLOL TARTRATE 50 MG TABLET (FP) PO SCH ×2 (11:23→22:35)
[2022-09-01] MEDS: FUROSEMIDE 20 MG TABLET (FP) PO SCH (11:23)
[2022-09-01] MEDS: ESCITALOPRAM OXALATE 10 MG TABLET PO SCH (11:23)
[2022-09-01] MEDS: LISINOPRIL 20 MG TABLET PO SCH (11:24)
[2022-09-01] MEDS ORDERED: MAG HYDROX/AL HYDROX/SIMETH 30 ML UNIT-DOSE CUP PO PRN (11:44)
[2022-09-01] MEDS: COLLAGENASE CLOSTRIDIUM HIST. 30 GRAMS TUBE TP SCH (14:15)
[2022-09-01 14:30] VITALS: BMI 56.2
[2022-09-01] MEDS: NYSTATIN 100,000 UNIT/GM TOPICAL CREAM 15 GM TUBE TP SCH ×2 (17:01→23:07)
[2022-09-01] MEDS: AMOX TR/POT CLAV 500MG/125MG TABLETS (FP) PO SCH (17:02)
[2022-09-01] MEDS: ATORVASTATIN CA 80 MG TABLET (FP) PO SCH (22:35)
[2022-09-02] MEDS: metFORMIN HCL 500 MG TABLET (FP) PO SCH (06:10)
[2022-09-02] MEDS: HEPARIN NA (PORCINE) 5,000 UNITS/ML 1ML VIAL SQ SCH (06:10)
[2022-09-02] MEDS: INSULIN (LEVEMIR) 100 UNITS/ML UNITS SQ SCH (07:02)
[2022-09-02 07:13] VITALS: RESP 19
[2022-09-02] MEDS: GLIMEPIRIDE 2 MG TABLET PO SCH (07:21)
[2022-09-02] MEDS: AMOX TR/POT CLAV 500MG/125MG TABLETS (FP) PO SCH (08:46)
[2022-09-02] MEDS: LISINOPRIL 20 MG TABLET PO SCH (09:07)
[2022-09-02] MEDS: METOPROLOL TARTRATE 50 MG TABLET (FP) PO SCH (09:12)
[2022-09-02] MEDS: FUROSEMIDE 20 MG TABLET (FP) PO SCH (09:12)
[2022-09-02] MEDS: ESCITALOPRAM OXALATE 10 MG TABLET PO SCH (09:12)
[2022-09-02] MEDS: NYSTATIN 100,000 UNIT/GM TOPICAL CREAM 15 GM TUBE TP SCH (09:13)
[2022-09-02] MEDS: COLLAGENASE CLOSTRIDIUM HIST. 30 GRAMS TUBE TP SCH (09:13)
[2022-09-02 13:23] VITALS: BP 130/63; PULSE 56; TEMP 98.3
== END 2022-09-02 16:09 | disposition home or self-care (01) ==
LOC: JER 12:41 → JERBED 15:55 → UNDOADMOB 15:55 → INTOOBSV 15:55 → JERBED 16:32 → J7W 18:51
PROVIDERS: ADMIT Internal Medicine; ATTEND Internal Medicine
PROC: 3E033GC Introduction of Other Therapeutic Substance into Peripheral Vein, Percutaneous Approach (ICD-10-PCS; principal; 2022-08-31)
PROC: 3E013VG Introduction of Insulin into Subcutaneous Tissue, Percutaneous Approach (ICD-10-PCS; 2022-08-31)
DX: I12.9 Hypertensive chronic kidney disease with stage 1 through stage 4 chronic kidney disease, or unspecified chronic kidney disease (principal); N18.9 Chronic kidney disease, unspecified; F32.A Depression, unspecified; L97.509 Non-pressure chronic ulcer of other part of unspecified foot with unspecified severity; G47.33 Obstructive sleep apnea (adult) (pediatric); S91.302A Unspecified open wound, left foot, initial encounter; S91.301A Unspecified open wound, right foot, initial encounter; E11.22 Type 2 diabetes mellitus with diabetic chronic kidney disease; U07.1 COVID-19; E66.01 Morbid (severe) obesity due to excess calories; Z68.43 Body mass index [BMI] 50.0-59.9, adult; E11.621 Type 2 diabetes mellitus with foot ulcer; X58.XXXA Exposure to other specified factors, initial encounter
CPT/HCPCS: 36415; 73610-TC-LT-FY; 73610-TC-RT-FY; 73630-TC-LT; 73630-TC-RT-FY; 80048; 80053; 82962; 85025; 85027; 85610; 85651; 85730; 86140; 86850; 86900; 86901; 87070; 87186; 87205; 93005; 93010; 96372; 99285-25; C9803-CS; G0378; G0463-25; J1644; U0003; U0005

== ENCOUNTER 2022-11-16 10:27 | Inpatient (IN) | payer MEDICARE, OTHER ==
[2022-11-16] MEDS ORDERED: VANCOMYCIN/WATER FOR INJ (PEG) 1,000 MG/200 ML BAG IVPB ONE ×2 (11:12→12:03)
[2022-11-16] MEDS ORDERED: PIPERACILLIN/TAZOB 4.5 GM 4.5 GM in DEXTROSE 5%-WATER 100 ML IVPB ONE (11:16)
[2022-11-16] MEDS ORDERED: PIPERACILLIN/TAZOB 4.5 GM 4.5 GM/100 ML BAG IVPB ONE (11:56)
[2022-11-16 12:07] LABS: BASO % 0.4 % (0-2.0); EOS % 1.5 % (0-4.5); HEMATOCRIT 35.7 % (32.4-45.2); HEMOGLOBIN 12.3 GM/dL (10.7-15.3); LYMPH % 14.9 % (8-40); MCH 28.2 pg (25.7-33.7); MCHC 34.4 g/dl (32.0-36.0); MEAN CELL VOLUME 82.2 fl (80-96); MEAN PLT VOLUME 8.3 fl (7.5-11.1); NEUT % 76.2 % (42.8-82.8); PLATELET COUNT 275 10^3/uL (134-434); RBC 4.34 M/mm3 (3.60-5.2); WHITE BLOOD COUNT 8.1 K/mm3 (4.0-10.0)
[2022-11-16 12:14] LABS: INR 1.04 (0.83-1.09); PROTHROMBIN TIME (PATIENT) 12.1 SEC (9.7-13.0)
[2022-11-16 12:24] LABS: POTASSIUM 4.7 mmol/L (3.5-5.1)
[2022-11-16 12:26] LABS: ALBUMIN 2.8 g/dl (3.4-5.0)
[2022-11-16 12:29] LABS: CREATININE 0.9 mg/dL (0.55-1.3)
[2022-11-16 12:31] LABS: BILIRUBIN,TOTAL 0.3 mg/dL (0.2-1); TOT PROT 6.8 g/dl (6.4-8.2)
[2022-11-16 12:46] LABS: ERYTHROCYTE SEDIMENTATION RATE 38 mm/hr (0-30)
[2022-11-16] MEDS ORDERED: MAG HYDROX/AL HYDROX/SIMETH 30 ML UNIT-DOSE CUP PO PRN (17:21)
[2022-11-16 17:50] VITALS: BMI 56.1
[2022-11-16] MEDS: PIPERACILLIN/TAZOB 3.375 GM 3.375 GM in DEXTROSE 5%-WATER - 50 ML IVPB SCH (22:45)
[2022-11-16] MEDS: METOPROLOL TARTRATE 50 MG TABLET (FP) PO SCH (22:46)
[2022-11-16] MEDS: ENOXAPARIN NA (PORCINE) 40 MG/0.4 ML DISP.SYRIN SQ SCH (22:46)
[2022-11-16] MEDS: INSULIN SLIDING SCALE (NOVOLOG) 1 VIAL SQ SCH (22:46)
[2022-11-16] MEDS: INSULIN (LEVEMIR) 100 UNITS/ML UNITS SQ SCH (22:46)
[2022-11-17] MEDS: PIPERACILLIN/TAZOB 3.375 GM 3.375 GM in DEXTROSE 5%-WATER - 50 ML IVPB SCH ×7 (02:46→23:44)
[2022-11-17] MEDS: INSULIN SLIDING SCALE (NOVOLOG) 1 VIAL SQ SCH ×4 (06:29→22:39)
[2022-11-17] MEDS: INSULIN (LEVEMIR) 100 UNITS/ML UNITS SQ SCH ×2 (06:29→22:40)
[2022-11-17 08:21] LABS: BASO % 0.4 % (0-2.0); EOS % 2.4 % (0-4.5); HEMATOCRIT 35.1 % (32.4-45.2); HEMOGLOBIN 12.2 GM/dL (10.7-15.3); LYMPH % 19.4 % (8-40); MCH 28.5 pg (25.7-33.7); MCHC 34.6 g/dl (32.0-36.0); MEAN CELL VOLUME 82.3 fl (80-96); MEAN PLT VOLUME 8.8 fl (7.5-11.1); MONO % 6.3 % (3.8-10.2); NEUT % 71.5 % (42.8-82.8); PLATELET COUNT 277 10^3/uL (134-434); RBC 4.27 M/mm3 (3.60-5.2); RDW 15.1 % (11.6-15.6); WHITE BLOOD COUNT 7.9 K/mm3 (4.0-10.0)
[2022-11-17 08:36] LABS: POTASSIUM 4.4 mmol/L (3.5-5.1)
[2022-11-17 08:40] LABS: CALCIUM 8.6 mg/dL (8.5-10.1)
[2022-11-17 08:41] LABS: ALBUMIN 2.8 g/dl (3.4-5.0); BLOOD UREA NITROGEN 28.2 mg/dL (7-18); MAGNESIUM 1.5 mg/dL (1.8-2.4)
[2022-11-17 08:44] LABS: CREATININE 1.1 mg/dL (0.55-1.3); PHOSPHOROUS 3.7 mg/dL (2.5-4.9)
[2022-11-17 08:45] LABS: TOT PROT 6.9 g/dl (6.4-8.2)
[2022-11-17 08:46] LABS: BILIRUBIN,TOTAL 0.6 mg/dL (0.2-1)
[2022-11-17] MEDS ORDERED: MAGNESIUM SULF 50% (8.12 MEQ/2 ML-1 GM VIAL) IVPB ONE (09:41)
[2022-11-17] MEDS ORDERED: CEFTRIAXONE 1 GM in DEXTROSE 5%-WATER - 50 ML IVPB SCH (10:00)
[2022-11-17] MEDS: ESCITALOPRAM OXALATE 10 MG TABLET PO SCH (10:35)
[2022-11-17] MEDS: ENOXAPARIN NA (PORCINE) 40 MG/0.4 ML DISP.SYRIN SQ SCH ×2 (10:35→22:40)
[2022-11-17] MEDS: FUROSEMIDE 20 MG TABLET (FP) PO SCH (10:35)
[2022-11-17] MEDS: ATORVASTATIN CA 80 MG TABLET (FP) PO SCH (10:35)
[2022-11-17] MEDS: LISINOPRIL 20 MG TABLET PO SCH (10:36)
[2022-11-17] MEDS: METOPROLOL TARTRATE 50 MG TABLET (FP) PO SCH ×2 (10:36→22:40)
[2022-11-17] MEDS: VANCOMYCIN PREMIX 1.5 GM 1,500 MG/300 ML BAG IVPB SCH (15:56)
[2022-11-17] MEDS: COLLAGENASE CLOSTRIDIUM HIST. 30 GRAMS TUBE TP SCH (23:43)
[2022-11-18] MEDS: INSULIN (LEVEMIR) 100 UNITS/ML UNITS SQ SCH ×2 (06:28→22:51)
[2022-11-18] MEDS: INSULIN SLIDING SCALE (NOVOLOG) 1 VIAL SQ SCH ×4 (06:29→22:50)
[2022-11-18] MEDS: PIPERACILLIN/TAZOB 3.375 GM 3.375 GM in DEXTROSE 5%-WATER - 50 ML IVPB SCH ×3 (06:30→22:49)
[2022-11-18 08:19] LABS: BASO % 0.7 % (0-2.0); EOS % 3.6 % (0-4.5); HEMOGLOBIN 11.6 GM/dL (10.7-15.3); LYMPH % 18.4 % (8-40); MEAN CELL VOLUME 82.2 fl (80-96); MEAN PLT VOLUME 8.4 fl (7.5-11.1); MONO % 7.7 % (3.8-10.2); NEUT % 69.6 % (42.8-82.8); PLATELET COUNT 251 10^3/uL (134-434); RBC 4.14 M/mm3 (3.60-5.2); RDW 14.9 % (11.6-15.6); WHITE BLOOD COUNT 6.2 K/mm3 (4.0-10.0)
[2022-11-18 08:35] LABS: POTASSIUM 4.4 mmol/L (3.5-5.1)
[2022-11-18 08:39] LABS: ALBUMIN 2.5 g/dl (3.4-5.0); CALCIUM 8.4 mg/dL (8.5-10.1)
[2022-11-18 08:40] LABS: BLOOD UREA NITROGEN 30.2 mg/dL (7-18); MAGNESIUM 1.9 mg/dL (1.8-2.4)
[2022-11-18 08:43] LABS: CREATININE 1.1 mg/dL (0.55-1.3); PHOSPHOROUS 4.2 mg/dL (2.5-4.9)
[2022-11-18 08:44] LABS: BILIRUBIN,TOTAL 0.5 mg/dL (0.2-1)
[2022-11-18 08:45] LABS: TOT PROT 6.3 g/dl (6.4-8.2)
[2022-11-18] MEDS: METOPROLOL TARTRATE 50 MG TABLET (FP) PO SCH ×2 (09:28→22:55)
[2022-11-18] MEDS: ATORVASTATIN CA 80 MG TABLET (FP) PO SCH (09:28)
[2022-11-18] MEDS: ENOXAPARIN NA (PORCINE) 40 MG/0.4 ML DISP.SYRIN SQ SCH ×2 (09:28→22:48)
[2022-11-18] MEDS: LISINOPRIL 20 MG TABLET PO SCH (09:28)
[2022-11-18] MEDS: ESCITALOPRAM OXALATE 10 MG TABLET PO SCH (09:28)
[2022-11-18] MEDS: FUROSEMIDE 20 MG TABLET (FP) PO SCH (09:28)
[2022-11-18] MEDS: COLLAGENASE CLOSTRIDIUM HIST. 30 GRAMS TUBE TP SCH (10:46)
[2022-11-18] MEDS ORDERED: INSULIN (NOVOLOG) ASPART 100 UNITS/ML 10ML VIAL ONE (11:05)
[2022-11-18] MEDS: VANCOMYCIN PREMIX 1.5 GM 1,500 MG/300 ML BAG IVPB SCH (15:16)
[2022-11-18 18:29] LABS: EPI CELLS 2 /uL (0-25.1); HYALINE CASTS 0 /uL (0-3.1); URINE APPEARANCE CLEAR; URINE BACTERIA 0 /uL (0-1359); URINE BILIRUBIN NEGATIVE (NEGATIVE); URINE COLOR YELLOW; URINE GLUCOSE (UA) NEGATIVE (NEGATIVE); URINE KETONE NEGATIVE (NEGATIVE); URINE LEUK ESTERASE NEGATIVE (NEGATIVE); URINE NITRITE NEGATIVE (NEGATIVE); URINE PROTEIN 1+ (NEGATIVE); URINE RBC 3 /uL (0-23.9); URINE UROBILINOGEN 0.2 mg/dL (0.2-1.0); URINE WBC 4 /uL (0-25.8)
[2022-11-19] MEDS: PIPERACILLIN/TAZOB 3.375 GM 3.375 GM in DEXTROSE 5%-WATER - 50 ML IVPB SCH ×3 (06:29→22:31)
[2022-11-19] MEDS: INSULIN (LEVEMIR) 100 UNITS/ML UNITS SQ SCH ×2 (06:30→22:22)
[2022-11-19] MEDS: INSULIN SLIDING SCALE (NOVOLOG) 1 VIAL SQ SCH ×4 (06:31→22:24)
[2022-11-19 08:20] LABS: BASO % 0.7 % (0-2.0); EOS % 3.8 % (0-4.5); HEMATOCRIT 31.9 % (32.4-45.2); HEMOGLOBIN 10.8 GM/dL (10.7-15.3); LYMPH % 20.5 % (8-40); MCH 27.9 pg (25.7-33.7); MCHC 33.9 g/dl (32.0-36.0); MEAN CELL VOLUME 82.3 fl (80-96); MEAN PLT VOLUME 8.2 fl (7.5-11.1); PLATELET COUNT 249 10^3/uL (134-434); RBC 3.88 M/mm3 (3.60-5.2); RDW 14.9 % (11.6-15.6); WHITE BLOOD COUNT 7.3 K/mm3 (4.0-10.0)
[2022-11-19 08:37] LABS: POTASSIUM 4.5 mmol/L (3.5-5.1)
[2022-11-19 08:43] LABS: ALBUMIN 2.5 g/dl (3.4-5.0); BLOOD UREA NITROGEN 29.1 mg/dL (7-18); CALCIUM 8.2 mg/dL (8.5-10.1)
[2022-11-19 08:46] LABS: CREATININE 1.1 mg/dL (0.55-1.3)
[2022-11-19 08:47] LABS: BILIRUBIN,TOTAL 0.3 mg/dL (0.2-1); TOT PROT 6.1 g/dl (6.4-8.2)
[2022-11-19 09:24] LABS: ERYTHROCYTE SEDIMENTATION RATE 78 mm/hr (0-30)
[2022-11-19] MEDS: COLLAGENASE CLOSTRIDIUM HIST. 30 GRAMS TUBE TP SCH (10:03)
[2022-11-19] MEDS: ATORVASTATIN CA 80 MG TABLET (FP) PO SCH (10:04)
[2022-11-19] MEDS: LISINOPRIL 20 MG TABLET PO SCH (10:06)
[2022-11-19] MEDS: FUROSEMIDE 20 MG TABLET (FP) PO SCH (10:06)
[2022-11-19] MEDS: METOPROLOL TARTRATE 50 MG TABLET (FP) PO SCH ×2 (10:07→22:22)
[2022-11-19] MEDS: ESCITALOPRAM OXALATE 10 MG TABLET PO SCH (10:07)
[2022-11-19] MEDS: ENOXAPARIN NA (PORCINE) 40 MG/0.4 ML DISP.SYRIN SQ SCH ×2 (10:07→22:25)
[2022-11-19] MEDS: VANCOMYCIN PREMIX 1.5 GM 1,500 MG/300 ML BAG IVPB SCH (15:02)
[2022-11-20] MEDS: PIPERACILLIN/TAZOB 3.375 GM 3.375 GM in DEXTROSE 5%-WATER - 50 ML IVPB SCH ×3 (06:49→22:26)
[2022-11-20] MEDS: INSULIN (LEVEMIR) 100 UNITS/ML UNITS SQ SCH ×2 (06:50→21:13)
[2022-11-20] MEDS: INSULIN SLIDING SCALE (NOVOLOG) 1 VIAL SQ SCH ×4 (06:50→21:15)
[2022-11-20 10:26] LABS: BASO % 0.5 % (0-2.0); EOS % 3.1 % (0-4.5); HEMATOCRIT 33.5 % (32.4-45.2); HEMOGLOBIN 11.3 GM/dL (10.7-15.3); LYMPH % 15.8 % (8-40); MCH 27.8 pg (25.7-33.7); MCHC 33.7 g/dl (32.0-36.0); MEAN CELL VOLUME 82.4 fl (80-96); MEAN PLT VOLUME 8.2 fl (7.5-11.1); MONO % 10.1 % (3.8-10.2); NEUT % 70.5 % (42.8-82.8); PLATELET COUNT 260 10^3/uL (134-434); RBC 4.07 M/mm3 (3.60-5.2); RDW 15.2 % (11.6-15.6); WHITE BLOOD COUNT 6.8 K/mm3 (4.0-10.0)
[2022-11-20 11:04] LABS: ALBUMIN 2.7 g/dl (3.4-5.0); BLOOD UREA NITROGEN 25.5 mg/dL (7-18); CALCIUM 8.5 mg/dL (8.5-10.1); MAGNESIUM 1.9 mg/dL (1.8-2.4)
[2022-11-20 11:05] LABS: POTASSIUM 4.4 mmol/L (3.5-5.1)
[2022-11-20] MEDS ORDERED: INSULIN (NOVOLOG) ASPART 100 UNITS/ML 10ML VIAL ONE ×2 (11:06→12:12)
[2022-11-20 11:07] LABS: PHOSPHOROUS 3.6 mg/dL (2.5-4.9)
[2022-11-20] MEDS: ENOXAPARIN NA (PORCINE) 40 MG/0.4 ML DISP.SYRIN SQ SCH ×2 (11:07→21:15)
[2022-11-20] MEDS: LISINOPRIL 20 MG TABLET PO SCH (11:08)
[2022-11-20] MEDS: METOPROLOL TARTRATE 50 MG TABLET (FP) PO SCH ×2 (11:08→21:14)
[2022-11-20] MEDS: ATORVASTATIN CA 80 MG TABLET (FP) PO SCH (11:08)
[2022-11-20 11:09] LABS: BILIRUBIN,TOTAL 0.4 mg/dL (0.2-1); TOT PROT 6.7 g/dl (6.4-8.2)
[2022-11-20] MEDS: FUROSEMIDE 20 MG TABLET (FP) PO SCH (11:09)
[2022-11-20] MEDS: ESCITALOPRAM OXALATE 10 MG TABLET PO SCH (11:09)
[2022-11-20] MEDS: COLLAGENASE CLOSTRIDIUM HIST. 30 GRAMS TUBE TP SCH (11:10)
[2022-11-20] MEDS: VANCOMYCIN PREMIX 1.5 GM 1,500 MG/300 ML BAG IVPB SCH (15:54)
[2022-11-21] MEDS: PIPERACILLIN/TAZOB 3.375 GM 3.375 GM in DEXTROSE 5%-WATER - 50 ML IVPB SCH ×3 (06:02→22:02)
[2022-11-21] MEDS: INSULIN (LEVEMIR) 100 UNITS/ML UNITS SQ SCH ×2 (06:02→22:03)
[2022-11-21] MEDS: INSULIN SLIDING SCALE (NOVOLOG) 1 VIAL SQ SCH ×4 (06:03→22:03)
[2022-11-21] MEDS: ZINC OXIDE/PANTHENOL/VITAMIN E 56 GM TUBE TP SCH (09:45)
[2022-11-21] MEDS: FUROSEMIDE 20 MG TABLET (FP) PO SCH (09:46)
[2022-11-21] MEDS: METOPROLOL TARTRATE 50 MG TABLET (FP) PO SCH ×2 (09:46→22:03)
[2022-11-21] MEDS: COLLAGENASE CLOSTRIDIUM HIST. 30 GRAMS TUBE TP SCH (09:46)
[2022-11-21] MEDS: LISINOPRIL 20 MG TABLET PO SCH (09:46)
[2022-11-21] MEDS: ENOXAPARIN NA (PORCINE) 40 MG/0.4 ML DISP.SYRIN SQ SCH ×2 (09:46→22:03)
[2022-11-21] MEDS: ESCITALOPRAM OXALATE 10 MG TABLET PO SCH (09:46)
[2022-11-21] MEDS: ATORVASTATIN CA 80 MG TABLET (FP) PO SCH (09:46)
[2022-11-21] MEDS ORDERED: INSULIN (NOVOLOG) ASPART 100 UNITS/ML 10ML VIAL ONE ×3 (11:13→21:14)
[2022-11-22] MEDS: INSULIN (LEVEMIR) 100 UNITS/ML UNITS SQ SCH (06:07)
[2022-11-22] MEDS: PIPERACILLIN/TAZOB 3.375 GM 3.375 GM in DEXTROSE 5%-WATER - 50 ML IVPB SCH ×2 (06:07→14:19)
[2022-11-22] MEDS: INSULIN SLIDING SCALE (NOVOLOG) 1 VIAL SQ SCH ×3 (06:07→16:38)
[2022-11-22 07:05] LABS: BASO % 0.7 % (0-2.0); EOS % 4.2 % (0-4.5); HEMATOCRIT 34.1 % (32.4-45.2); HEMOGLOBIN 11.9 GM/dL (10.7-15.3); LYMPH % 23.6 % (8-40); MCH 28.8 pg (25.7-33.7); MEAN CELL VOLUME 82.5 fl (80-96); MEAN PLT VOLUME 8.5 fl (7.5-11.1); MONO % 9.2 % (3.8-10.2); NEUT % 62.3 % (42.8-82.8); PLATELET COUNT 263 10^3/uL (134-434); RBC 4.13 M/mm3 (3.60-5.2); RDW 14.9 % (11.6-15.6); WHITE BLOOD COUNT 7.2 K/mm3 (4.0-10.0)
[2022-11-22 07:29] LABS: POTASSIUM 4.5 mmol/L (3.5-5.1)
[2022-11-22 07:30] LABS: CALCIUM 8.9 mg/dL (8.5-10.1); MAGNESIUM 1.6 mg/dL (1.8-2.4)
[2022-11-22 07:31] LABS: BLOOD UREA NITROGEN 24.6 mg/dL (7-18)
[2022-11-22 07:33] LABS: CREATININE 0.9 mg/dL (0.55-1.3); PHOSPHOROUS 3.5 mg/dL (2.5-4.9)
[2022-11-22] MEDS ORDERED: MAGNESIUM SULF 50% (8.12 MEQ/2 ML-1 GM VIAL) IVPB ONE (07:48)
[2022-11-22] MEDS: ENOXAPARIN NA (PORCINE) 40 MG/0.4 ML DISP.SYRIN SQ SCH (10:18)
[2022-11-22] MEDS: ESCITALOPRAM OXALATE 10 MG TABLET PO SCH (10:18)
[2022-11-22] MEDS: LISINOPRIL 20 MG TABLET PO SCH (10:18)
[2022-11-22] MEDS: METOPROLOL TARTRATE 50 MG TABLET (FP) PO SCH (10:18)
[2022-11-22] MEDS: FUROSEMIDE 20 MG TABLET (FP) PO SCH (10:18)
[2022-11-22] MEDS: ATORVASTATIN CA 80 MG TABLET (FP) PO SCH (10:18)
[2022-11-22] MEDS: ZINC OXIDE/PANTHENOL/VITAMIN E 56 GM TUBE TP SCH (10:20)
[2022-11-22] MEDS: COLLAGENASE CLOSTRIDIUM HIST. 30 GRAMS TUBE TP SCH (14:03)
[2022-11-22 14:28] VITALS: BP 158/66; PULSE 60; RESP 20; TEMP 97.5
== END 2022-11-22 17:50 | DRG 638 ==
LOC: JERFT 10:27 → UNDOADMOB 15:01 → INTOOBSV 15:01 → JERBED 15:01 → J7W 17:18 → JERBED 17:18 → J7W 11-20 15:00 → JERBED 11-20 15:00 → OBSVTOIN 11-21 07:07 → INTOOBSV 11-21 07:07
PROVIDERS: ADMIT Internal Medicine; ATTEND Internal Medicine
DX: E11.621 Type 2 diabetes mellitus with foot ulcer (principal); E66.2 Morbid (severe) obesity with alveolar hypoventilation; L02.419 Cutaneous abscess of limb, unspecified; L97.919 Non-pressure chronic ulcer of unspecified part of right lower leg with unspecified severity; L97.909 Non-pressure chronic ulcer of unspecified part of unspecified lower leg with unspecified severity; Z68.43 Body mass index [BMI] 50.0-59.9, adult; L03.116 Cellulitis of left lower limb; E78.5 Hyperlipidemia, unspecified; E11.22 Type 2 diabetes mellitus with diabetic chronic kidney disease; I12.9 Hypertensive chronic kidney disease with stage 1 through stage 4 chronic kidney disease, or unspecified chronic kidney disease; N18.9 Chronic kidney disease, unspecified
CPT/HCPCS: 36415; 71045-TC-FY; 73630-TC-LT; 73630-TC-RT-FY; 73700-TC-RT; 80048; 80053; 81003; 82962; 83036; 83735; 84100; 85025; 85610; 85651; 86140; 86850; 86900; 86901; 87040; 87070; 87186; 87205; 93005; 93010; 93926-TC; 93970-TC; 97116-GP; 97161-GP; 99285-25; C9803-CS; G0378; G0463-25; G0480; U0003; U0005

== ENCOUNTER 2023-07-26 10:58 | Inpatient (IN) | payer MEDICARE, OTHER ==
[2023-07-26] MEDS ORDERED: VANCOMYCIN 1,000 MG in DEXTROSE 5%-WATER - 250 ML IVPB ONE (14:21)
[2023-07-26] MEDS ORDERED: PIPERACILLIN/TAZOB 4.5 GM 4.5 GM in DEXTROSE 5%-WATER 100 ML IVPB ONE (14:21)
[2023-07-26] MEDS ORDERED: PIPERACILLIN/TAZOB 4.5 GM 4.5 GM/100 ML BAG IVPB ONE (14:40)
[2023-07-26 14:46] LABS: INR 1.01 (0.83-1.09); PROTHROMBIN TIME (PATIENT) 11.7 SEC (9.7-13.0)
[2023-07-26 14:49] LABS: ACTIVATED PTT 21.1 SECONDS (25.2-36.5)
[2023-07-26 14:56] LABS: POTASSIUM 5.2 mmol/L (3.5-5.1)
[2023-07-26 14:58] LABS: CALCIUM 9.5 mg/dL (8.5-10.1)
[2023-07-26 14:59] LABS: ALBUMIN 2.8 g/dl (3.4-5.0); BLOOD UREA NITROGEN 23.4 mg/dL (7-18)
[2023-07-26 15:02] LABS: CREATININE 0.9 mg/dL (0.55-1.3)
[2023-07-26 15:03] LABS: BILIRUBIN,TOTAL 0.4 mg/dL (0.2-1); TOT PROT 8.1 g/dl (6.4-8.2)
[2023-07-26 16:55] LABS: BASO % 0.8 % (0-2.0); EOS % 2.1 % (0-4.5); HEMATOCRIT 33.5 % (32.4-45.2); HEMOGLOBIN 10.9 GM/dL (10.7-15.3); LYMPH % 15.4 % (8-40); MCHC 32.6 g/dl (32.0-36.0); MEAN CELL VOLUME 82.8 fl (80-96); MEAN PLT VOLUME 7.7 fl (7.5-11.1); MONO % 8.3 % (3.8-10.2); NEUT % 73.4 % (42.8-82.8); PLATELET COUNT 388 10^3/uL (134-434); RBC 4.04 M/mm3 (3.60-5.2); RDW 14.7 % (11.6-15.6); WHITE BLOOD COUNT 10.6 K/mm3 (4.0-10.0)
[2023-07-26 17:20] LABS: POTASSIUM 4.7 mmol/L (3.5-5.1)
[2023-07-26 17:21] LABS: CALCIUM 9.1 mg/dL (8.5-10.1)
[2023-07-26 17:22] LABS: BLOOD UREA NITROGEN 20.6 mg/dL (7-18)
[2023-07-26 17:25] LABS: CREATININE 0.9 mg/dL (0.55-1.3)
[2023-07-26 17:47] LABS: ERYTHROCYTE SEDIMENTATION RATE 81 mm/hr (0-30)
[2023-07-26] MEDS ORDERED: ENOXAPARIN NA (PORCINE) 40 MG/0.4 ML DISP.SYRIN SQ ONE (21:26)
[2023-07-26] MEDS: ENOXAPARIN NA (PORCINE) 40 MG/0.4 ML DISP.SYRIN SQ SCH (21:32)
[2023-07-26] MEDS: INSULIN ASPART SLIDING SCALE (NOVOLOG) 1 VIAL SQ SCH (21:32)
[2023-07-26] MEDS: METOPROLOL TARTRATE 50 MG TABLET (FP) PO SCH (21:53)
[2023-07-27] MEDS ORDERED: PIPERACILLIN/TAZOB 3.375 GM 3.375 GM/50 ML BAG IVPB ONE ×2 (00:27→09:24)
[2023-07-27] MEDS: PIPERACILLIN/TAZOB 3.375 GM 3.375 GM in DEXTROSE 5%-WATER - 50 ML IVPB SCH ×3 (00:36→09:40)
[2023-07-27] MEDS ORDERED: INSULIN (LEVEMIR) 100 UNITS/ML UNITS SQ ONE ×2 (01:41→09:26)
[2023-07-27] MEDS ORDERED: INSULIN (LEVEMIR) 100 UNITS/ML UNITS SQ SCH ×2 (07:00→08:50)
[2023-07-27 07:43] LABS: POTASSIUM 4.4 mmol/L (3.5-5.1)
[2023-07-27 07:45] LABS: CALCIUM 9.8 mg/dL (8.5-10.1)
[2023-07-27 07:46] LABS: ALBUMIN 2.8 g/dl (3.4-5.0); BLOOD UREA NITROGEN 21.6 mg/dL (7-18); HEMATOCRIT 34.3 % (32.4-45.2); HEMOGLOBIN 11.3 GM/dL (10.7-15.3); MCH 27.4 pg (25.7-33.7); MCHC 32.9 g/dl (32.0-36.0); MEAN CELL VOLUME 83.4 fl (80-96); MEAN PLT VOLUME 7.9 fl (7.5-11.1); PLATELET COUNT 415 10^3/uL (134-434); RBC 4.12 M/mm3 (3.60-5.2); RDW 14.7 % (11.6-15.6); WHITE BLOOD COUNT 9.3 K/mm3 (4.0-10.0)
[2023-07-27 07:50] LABS: CREATININE 0.9 mg/dL (0.55-1.3)
[2023-07-27 07:52] LABS: BILIRUBIN,TOTAL 0.4 mg/dL (0.2-1); TOT PROT 7.4 g/dl (6.4-8.2)
[2023-07-27] MEDS ORDERED: ACETAMINOPHEN 325 MG TABLET (FP) PO PRN (08:52)
[2023-07-27] MEDS ORDERED: ACETAMINOPHEN 325 MG TABLET (FP) ONE (09:35)
[2023-07-27] MEDS: ASPIRIN COATED 81 MG TABLET.EC PO SCH (09:40)
[2023-07-27] MEDS: ESCITALOPRAM OXALATE 10 MG TABLET PO SCH (09:40)
[2023-07-27] MEDS: METOPROLOL TARTRATE 50 MG TABLET (FP) PO SCH ×2 (09:40→21:47)
[2023-07-27] MEDS: INSULIN ASPART SLIDING SCALE (NOVOLOG) 1 VIAL SQ SCH ×4 (09:40→21:53)
[2023-07-27] MEDS: INSULIN (LEVEMIR) 100 UNITS/ML UNITS SQ SCH (09:40)
[2023-07-27] MEDS: FUROSEMIDE 20 MG TABLET (FP) PO SCH (09:40)
[2023-07-27] MEDS: ATORVASTATIN CA 80 MG TABLET (FP) PO SCH (09:40)
[2023-07-27] MEDS: ENOXAPARIN NA (PORCINE) 40 MG/0.4 ML DISP.SYRIN SQ SCH ×2 (09:41→21:47)
[2023-07-27] MEDS: LISINOPRIL 20 MG TABLET PO SCH (09:41)
[2023-07-27] MEDS: PIPERACILLIN/TAZOB 4.5 GM 4.5 GM in DEXTROSE 5%-WATER 100 ML IVPB SCH ×2 (14:36→18:45)
[2023-07-27] MEDS ORDERED: VANCOMYCIN PREMIX 1.5 GM 1,500 MG/300 ML BAG IVPB SCH (17:00)
[2023-07-27] MEDS: COLLAGENASE CLOSTRIDIUM HIST. 30 GRAMS TUBE TP SCH (19:50)
[2023-07-27] MEDS: VANCOMYCIN PREMIX 1.5 GM 1,500 MG/300 ML BAG IVPB SCH (20:13)
[2023-07-28] MEDS: PIPERACILLIN/TAZOB 4.5 GM 4.5 GM in DEXTROSE 5%-WATER 100 ML IVPB SCH ×2 (01:10→09:24)
[2023-07-28] MEDS ORDERED: PIPERACILLIN/TAZOB 3.375 GM 3.375 GM in DEXTROSE 5%-WATER - 50 ML IVPB SCH (03:00)
[2023-07-28] MEDS: INSULIN ASPART SLIDING SCALE (NOVOLOG) 1 VIAL SQ SCH ×4 (07:41→21:36)
[2023-07-28] MEDS: INSULIN (LEVEMIR) 100 UNITS/ML UNITS SQ SCH (07:50)
[2023-07-28] MEDS: ESCITALOPRAM OXALATE 10 MG TABLET PO SCH (09:29)
[2023-07-28] MEDS: LISINOPRIL 20 MG TABLET PO SCH (09:31)
[2023-07-28] MEDS: ATORVASTATIN CA 80 MG TABLET (FP) PO SCH (09:31)
[2023-07-28] MEDS: METOPROLOL TARTRATE 50 MG TABLET (FP) PO SCH ×2 (09:31→21:35)
[2023-07-28] MEDS: ENOXAPARIN NA (PORCINE) 40 MG/0.4 ML DISP.SYRIN SQ SCH ×2 (09:32→21:36)
[2023-07-28] MEDS: ASPIRIN COATED 81 MG TABLET.EC PO SCH (09:32)
[2023-07-28] MEDS: VANCOMYCIN PREMIX 1.5 GM 1,500 MG/300 ML BAG IVPB SCH (10:14)
[2023-07-28 10:36] LABS: POTASSIUM 4.5 mmol/L (3.5-5.1)
[2023-07-28 10:39] LABS: CALCIUM 8.5 mg/dL (8.5-10.1)
[2023-07-28 10:40] LABS: ALBUMIN 2.5 g/dl (3.4-5.0); HEMATOCRIT 34.8 % (32.4-45.2); HEMOGLOBIN 11.3 GM/dL (10.7-15.3); MCH 27.3 pg (25.7-33.7); MCHC 32.6 g/dl (32.0-36.0); MEAN PLT VOLUME 8.2 fl (7.5-11.1); RBC 4.15 M/mm3 (3.60-5.2); RDW 14.4 % (11.6-15.6)
[2023-07-28 10:41] LABS: WHITE BLOOD COUNT 13.1 K/mm3 (4.0-10.0)
[2023-07-28 10:43] LABS: MAGNESIUM 1.5 mg/dL (1.8-2.4)
[2023-07-28 10:44] LABS: BILIRUBIN,TOTAL 0.4 mg/dL (0.2-1)
[2023-07-28 10:45] LABS: TOT PROT 7.1 g/dl (6.4-8.2)
[2023-07-28] MEDS: COLLAGENASE CLOSTRIDIUM HIST. 30 GRAMS TUBE TP SCH (11:05)
[2023-07-28 11:25] LABS: ANISOCYTOSIS 0; HELMET CELLS 0; HOWELL-JOLLY BODIES 0; MACROCYTOSIS 0; OVALOCYTE 0; ROULEAU 0; SICKELED CELLS 0; TARGET CELLS 0; TEAR DROP CELLS 0; TOXIC GRANULATION 0
[2023-07-28 12:04] LABS: PLATELET COUNT 410 10^3/uL (134-434)
[2023-07-28] MEDS ORDERED: INSULIN (LEVEMIR) 100 UNITS/ML UNITS SQ SCH (13:34)
[2023-07-28 22:09] VITALS: BMI 56.9
[2023-07-29] MEDS: INSULIN ASPART SLIDING SCALE (NOVOLOG) 1 VIAL SQ SCH ×5 (05:47→22:51)
[2023-07-29] MEDS: ATORVASTATIN CA 80 MG TABLET (FP) PO SCH (09:52)
[2023-07-29] MEDS: METOPROLOL TARTRATE 50 MG TABLET (FP) PO SCH ×2 (09:52→22:50)
[2023-07-29] MEDS: ESCITALOPRAM OXALATE 10 MG TABLET PO SCH (09:52)
[2023-07-29] MEDS: FUROSEMIDE 20 MG TABLET (FP) PO SCH (09:52)
[2023-07-29] MEDS: ASPIRIN COATED 81 MG TABLET.EC PO SCH (09:52)
[2023-07-29] MEDS: LISINOPRIL 20 MG TABLET PO SCH (09:52)
[2023-07-29] MEDS: ENOXAPARIN NA (PORCINE) 40 MG/0.4 ML DISP.SYRIN SQ SCH (09:55)
[2023-07-29] MEDS: INSULIN (LEVEMIR) 100 UNITS/ML UNITS SQ SCH (09:56)
[2023-07-29] MEDS: COLLAGENASE CLOSTRIDIUM HIST. 30 GRAMS TUBE TP SCH (10:00)
[2023-07-29 10:46] LABS: BASO % 0.4 % (0-2.0); EOS % 3.6 % (0-4.5); HEMATOCRIT 32.4 % (32.4-45.2); HEMOGLOBIN 10.7 GM/dL (10.7-15.3); LYMPH % 13.1 % (8-40); MCH 27.6 pg (25.7-33.7); MCHC 33.2 g/dl (32.0-36.0); MEAN CELL VOLUME 83.2 fl (80-96); MONO % 9.3 % (3.8-10.2); NEUT % 73.6 % (42.8-82.8); PLATELET COUNT 379 10^3/uL (134-434); RDW 14.9 % (11.6-15.6); WHITE BLOOD COUNT 10.8 K/mm3 (4.0-10.0)
[2023-07-29 11:08] LABS: POTASSIUM 4.9 mmol/L (3.5-5.1)
[2023-07-29 11:13] LABS: CALCIUM 8.5 mg/dL (8.5-10.1)
[2023-07-29 11:14] LABS: ALBUMIN 2.6 g/dl (3.4-5.0); BLOOD UREA NITROGEN 29.8 mg/dL (7-18); MAGNESIUM 1.9 mg/dL (1.8-2.4)
[2023-07-29 11:16] LABS: PHOSPHOROUS 3.7 mg/dL (2.5-4.9)
[2023-07-29 11:17] LABS: BILIRUBIN,TOTAL 0.2 mg/dL (0.2-1); CREATININE 1.1 mg/dL (0.55-1.3)
[2023-07-30] MEDS: INSULIN (LEVEMIR) 100 UNITS/ML UNITS SQ SCH (06:57)
[2023-07-30] MEDS: INSULIN ASPART SLIDING SCALE (NOVOLOG) 1 VIAL SQ SCH ×4 (06:58→22:50)
[2023-07-30] MEDS ORDERED: INSULIN (LEVEMIR) 100 UNITS/ML UNITS SQ ONE (08:00)
[2023-07-30] MEDS: COLLAGENASE CLOSTRIDIUM HIST. 30 GRAMS TUBE TP SCH (10:12)
[2023-07-30] MEDS: ESCITALOPRAM OXALATE 10 MG TABLET PO SCH (10:13)
[2023-07-30] MEDS: ATORVASTATIN CA 80 MG TABLET (FP) PO SCH (10:13)
[2023-07-30] MEDS: METOPROLOL TARTRATE 50 MG TABLET (FP) PO SCH ×2 (10:13→22:00)
[2023-07-30] MEDS: LISINOPRIL 20 MG TABLET PO SCH (10:13)
[2023-07-30] MEDS: ASPIRIN COATED 81 MG TABLET.EC PO SCH (10:13)
[2023-07-30 10:20] LABS: BASO % 0.5 % (0-2.0); EOS % 3.7 % (0-4.5); HEMATOCRIT 31.8 % (32.4-45.2); HEMOGLOBIN 10.2 GM/dL (10.7-15.3); LYMPH % 18.1 % (8-40); MCH 26.9 pg (25.7-33.7); MEAN CELL VOLUME 84.2 fl (80-96); MEAN PLT VOLUME 7.8 fl (7.5-11.1); NEUT % 66.7 % (42.8-82.8); PLATELET COUNT 337 10^3/uL (134-434); RBC 3.78 M/mm3 (3.60-5.2); RDW 14.7 % (11.6-15.6)
[2023-07-30 10:52] LABS: POTASSIUM 4.9 mmol/L (3.5-5.1)
[2023-07-30 10:57] LABS: CALCIUM 8.9 mg/dL (8.5-10.1)
[2023-07-30 10:58] LABS: ALBUMIN 2.5 g/dl (3.4-5.0); BLOOD UREA NITROGEN 30.2 mg/dL (7-18)
[2023-07-30 11:02] LABS: BILIRUBIN,TOTAL 0.4 mg/dL (0.2-1); TOT PROT 6.9 g/dl (6.4-8.2)
[2023-07-30] MEDS ORDERED: MIDAZOLAM HCL 2 MG/2 ML SINGLE DOSE VIAL ONE (11:20)
[2023-07-30] MEDS ORDERED: PROPOFOL 20 ML ONE (11:22)
[2023-07-30] MEDS ORDERED: LIDOCAINE HCL/PF 2% SDV 5ML VIAL ONE (11:27)
[2023-07-30] MEDS ORDERED: BUPIVACAINE HCL/PF 0.5% (5MG/ML) 10 ML VIAL IJ ONE (11:30)
[2023-07-30] MEDS: CEFTRIAXONE 2 GM in DEXTROSE 5%-WATER 100 ML IVPB SCH (12:55)
[2023-07-31] MEDS: INSULIN (LEVEMIR) 100 UNITS/ML UNITS SQ SCH (06:56)
[2023-07-31] MEDS: INSULIN ASPART SLIDING SCALE (NOVOLOG) 1 VIAL SQ SCH ×4 (06:59→22:35)
[2023-07-31 09:51] LABS: POTASSIUM 4.9 mmol/L (3.5-5.1)
[2023-07-31 09:53] LABS: BASO % 0.7 % (0-2.0); EOS % 3.1 % (0-4.5); HEMATOCRIT 32.8 % (32.4-45.2); HEMOGLOBIN 10.8 GM/dL (10.7-15.3); LYMPH % 17.2 % (8-40); MCH 27.7 pg (25.7-33.7); MEAN CELL VOLUME 83.7 fl (80-96); MEAN PLT VOLUME 7.8 fl (7.5-11.1); MONO % 9.8 % (3.8-10.2); NEUT % 69.2 % (42.8-82.8); PLATELET COUNT 354 10^3/uL (134-434); RBC 3.92 M/mm3 (3.60-5.2); RDW 14.8 % (11.6-15.6); WHITE BLOOD COUNT 8.6 K/mm3 (4.0-10.0)
[2023-07-31] MEDS: METOPROLOL TARTRATE 50 MG TABLET (FP) PO SCH ×2 (10:05→22:35)
[2023-07-31] MEDS: LISINOPRIL 20 MG TABLET PO SCH (10:05)
[2023-07-31] MEDS: ASPIRIN COATED 81 MG TABLET.EC PO SCH (10:05)
[2023-07-31] MEDS: ATORVASTATIN CA 80 MG TABLET (FP) PO SCH ×2 (10:05→22:35)
[2023-07-31] MEDS: ESCITALOPRAM OXALATE 10 MG TABLET PO SCH (10:05)
[2023-07-31] MEDS: CEFTRIAXONE 2 GM in DEXTROSE 5%-WATER 100 ML IVPB SCH (10:05)
[2023-07-31] MEDS: FUROSEMIDE 20 MG TABLET (FP) PO SCH (10:05)
[2023-07-31] MEDS: COLLAGENASE CLOSTRIDIUM HIST. 30 GRAMS TUBE TP SCH (10:06)
[2023-07-31 10:10] LABS: CALCIUM 8.6 mg/dL (8.5-10.1)
[2023-07-31 10:11] LABS: ALBUMIN 2.6 g/dl (3.4-5.0); BLOOD UREA NITROGEN 32.1 mg/dL (7-18)
[2023-07-31 10:14] LABS: CREATININE 1.1 mg/dL (0.55-1.3)
[2023-07-31 10:15] LABS: BILIRUBIN,TOTAL 0.2 mg/dL (0.2-1)
[2023-07-31 10:17] LABS: TOT PROT 7.3 g/dl (6.4-8.2)
[2023-07-31] MEDS: MINERAL OIL/PET HY-PHL TOPICAL OINTMENT 454 GM JAR TP SCH ×2 (17:31→22:36)
[2023-07-31] MEDS ORDERED: ACETAMINOPHEN 325 MG TABLET (FP) PO PRN (18:51)
[2023-08-01] MEDS: INSULIN (LEVEMIR) 100 UNITS/ML UNITS SQ SCH (06:29)
[2023-08-01] MEDS: INSULIN ASPART SLIDING SCALE (NOVOLOG) 1 VIAL SQ SCH ×4 (06:30→22:39)
[2023-08-01] MEDS: ESCITALOPRAM OXALATE 10 MG TABLET PO SCH (10:07)
[2023-08-01] MEDS: CEFTRIAXONE 2 GM in DEXTROSE 5%-WATER 100 ML IVPB SCH (10:07)
[2023-08-01] MEDS: ASPIRIN COATED 81 MG TABLET.EC PO SCH (10:08)
[2023-08-01] MEDS: ENOXAPARIN NA (PORCINE) 40 MG/0.4 ML DISP.SYRIN SQ SCH (10:08)
[2023-08-01] MEDS: LISINOPRIL 20 MG TABLET PO SCH (10:08)
[2023-08-01] MEDS: METOPROLOL TARTRATE 50 MG TABLET (FP) PO SCH ×2 (10:08→22:40)
[2023-08-01 10:58] LABS: BASO % 0.5 % (0-2.0); EOS % 3.9 % (0-4.5); HEMATOCRIT 34.1 % (32.4-45.2); HEMOGLOBIN 11.3 GM/dL (10.7-15.3); LYMPH % 15.4 % (8-40); MCH 27.7 pg (25.7-33.7); MCHC 33.1 g/dl (32.0-36.0); MEAN CELL VOLUME 83.7 fl (80-96); MEAN PLT VOLUME 8.2 fl (7.5-11.1); MONO % 8.8 % (3.8-10.2); NEUT % 71.4 % (42.8-82.8); PLATELET COUNT 359 10^3/uL (134-434); RBC 4.07 M/mm3 (3.60-5.2); RDW 14.7 % (11.6-15.6); WHITE BLOOD COUNT 9.9 K/mm3 (4.0-10.0)
[2023-08-01 11:30] LABS: POTASSIUM 4.7 mmol/L (3.5-5.1)
[2023-08-01 11:47] LABS: BLOOD UREA NITROGEN 32.4 mg/dL (7-18)
[2023-08-01 11:48] LABS: ALBUMIN 2.8 g/dl (3.4-5.0)
[2023-08-01 11:49] LABS: CALCIUM 8.9 mg/dL (8.5-10.1); CREATININE 0.9 mg/dL (0.55-1.3)
[2023-08-01 11:50] LABS: MAGNESIUM 1.9 mg/dL (1.8-2.4); TOT PROT 7.6 g/dl (6.4-8.2)
[2023-08-01 11:51] LABS: BILIRUBIN,TOTAL 0.2 mg/dL (0.2-1)
[2023-08-01] MEDS: COLLAGENASE CLOSTRIDIUM HIST. 30 GRAMS TUBE TP SCH (12:20)
[2023-08-01] MEDS: MINERAL OIL/PET HY-PHL TOPICAL OINTMENT 454 GM JAR TP SCH ×2 (12:20→22:39)
[2023-08-01] MEDS: ATORVASTATIN CA 80 MG TABLET (FP) PO SCH (22:38)
[2023-08-02] MEDS: INSULIN ASPART SLIDING SCALE (NOVOLOG) 1 VIAL SQ SCH ×4 (07:00→21:47)
[2023-08-02] MEDS: INSULIN (LEVEMIR) 100 UNITS/ML UNITS SQ SCH (07:01)
[2023-08-02] MEDS: ESCITALOPRAM OXALATE 10 MG TABLET PO SCH (09:43)
[2023-08-02] MEDS: LISINOPRIL 20 MG TABLET PO SCH (09:43)
[2023-08-02] MEDS: METOPROLOL TARTRATE 50 MG TABLET (FP) PO SCH ×2 (09:43→21:40)
[2023-08-02] MEDS: ENOXAPARIN NA (PORCINE) 40 MG/0.4 ML DISP.SYRIN SQ SCH (09:43)
[2023-08-02] MEDS: COLLAGENASE CLOSTRIDIUM HIST. 30 GRAMS TUBE TP SCH (09:44)
[2023-08-02] MEDS: CEFTRIAXONE 2 GM in DEXTROSE 5%-WATER 100 ML IVPB SCH (09:44)
[2023-08-02] MEDS: ASPIRIN COATED 81 MG TABLET.EC PO SCH (09:44)
[2023-08-02 10:00] LABS: BASO % 0.6 % (0-2.0); EOS % 4.4 % (0-4.5); HEMATOCRIT 33.4 % (32.4-45.2); LYMPH % 18.4 % (8-40); MCH 27.5 pg (25.7-33.7); MEAN CELL VOLUME 83.2 fl (80-96); MEAN PLT VOLUME 8.2 fl (7.5-11.1); MONO % 9.2 % (3.8-10.2); NEUT % 67.4 % (42.8-82.8); PLATELET COUNT 353 10^3/uL (134-434); RBC 4.02 M/mm3 (3.60-5.2); RDW 14.5 % (11.6-15.6); WHITE BLOOD COUNT 8.3 K/mm3 (4.0-10.0)
[2023-08-02] MEDS ORDERED: FUROSEMIDE 20 MG TABLET (FP) PO SCH (10:00)
[2023-08-02 10:28] LABS: POTASSIUM 5.3 mmol/L (3.5-5.1)
[2023-08-02 10:40] LABS: CALCIUM 8.5 mg/dL (8.5-10.1)
[2023-08-02 10:41] LABS: ALBUMIN 2.5 g/dl (3.4-5.0)
[2023-08-02 10:44] LABS: CREATININE 0.9 mg/dL (0.55-1.3)
[2023-08-02 10:45] LABS: TOT PROT 7.3 g/dl (6.4-8.2)
[2023-08-02 10:46] LABS: BILIRUBIN,TOTAL 0.2 mg/dL (0.2-1)
[2023-08-02] MEDS: MINERAL OIL/PET HY-PHL TOPICAL OINTMENT 454 GM JAR TP SCH ×2 (15:31→21:49)
[2023-08-02] MEDS ORDERED: MELATONIN 5 MG TABLETS PO PRN (18:52)
[2023-08-02] MEDS ORDERED: CALCIUM GLUCONATE 10% - 1,000 MG/10 ML VIAL IVPB ONE (19:06)
[2023-08-02] MEDS: ATORVASTATIN CA 80 MG TABLET (FP) PO SCH (21:40)
[2023-08-02 21:46] LABS: POTASSIUM 5.1 mmol/L (3.5-5.1)
[2023-08-02 21:48] LABS: CALCIUM 8.1 mg/dL (8.5-10.1)
[2023-08-02 21:49] LABS: ALBUMIN 2.4 g/dl (3.4-5.0); BLOOD UREA NITROGEN 31.8 mg/dL (7-18)
[2023-08-02 21:52] LABS: CREATININE 1.1 mg/dL (0.55-1.3)
[2023-08-02 21:53] LABS: BILIRUBIN,TOTAL 0.2 mg/dL (0.2-1)
[2023-08-02 21:54] LABS: TOT PROT 6.7 g/dl (6.4-8.2)
[2023-08-03 02:22] VITALS: RESP 18
[2023-08-03] MEDS: INSULIN ASPART SLIDING SCALE (NOVOLOG) 1 VIAL SQ SCH ×2 (06:09→10:38)
[2023-08-03] MEDS: INSULIN (LEVEMIR) 100 UNITS/ML UNITS SQ SCH (06:17)
[2023-08-03] MEDS: METOPROLOL TARTRATE 50 MG TABLET (FP) PO SCH (09:00)
[2023-08-03] MEDS: ASPIRIN COATED 81 MG TABLET.EC PO SCH (09:01)
[2023-08-03] MEDS: ESCITALOPRAM OXALATE 10 MG TABLET PO SCH (09:01)
[2023-08-03] MEDS: ENOXAPARIN NA (PORCINE) 40 MG/0.4 ML DISP.SYRIN SQ SCH (09:01)
[2023-08-03] MEDS: CEFTRIAXONE 2 GM in DEXTROSE 5%-WATER 100 ML IVPB SCH (09:01)
[2023-08-03] MEDS: MINERAL OIL/PET HY-PHL TOPICAL OINTMENT 454 GM JAR TP SCH (09:02)
[2023-08-03] MEDS: COLLAGENASE CLOSTRIDIUM HIST. 30 GRAMS TUBE TP SCH (09:02)
[2023-08-03 11:51] LABS: BASO % 0.5 % (0-2.0); EOS % 4.2 % (0-4.5); HEMATOCRIT 32.8 % (32.4-45.2); HEMOGLOBIN 10.9 GM/dL (10.7-15.3); LYMPH % 13.9 % (8-40); MCH 27.4 pg (25.7-33.7); MCHC 33.1 g/dl (32.0-36.0); MEAN CELL VOLUME 82.8 fl (80-96); MEAN PLT VOLUME 8.3 fl (7.5-11.1); NEUT % 68.4 % (42.8-82.8); PLATELET COUNT 336 10^3/uL (134-434); RBC 3.96 M/mm3 (3.60-5.2); RDW 15.1 % (11.6-15.6); WHITE BLOOD COUNT 8.3 K/mm3 (4.0-10.0)
[2023-08-03 12:21] LABS: ALBUMIN 2.7 g/dl (3.4-5.0); CREATININE 0.9 mg/dL (0.55-1.3)
[2023-08-03 12:22] LABS: TOT PROT 7.4 g/dl (6.4-8.2)
[2023-08-03 12:23] LABS: BILIRUBIN,TOTAL 0.2 mg/dL (0.2-1)
[2023-08-03 12:24] LABS: CALCIUM 8.8 mg/dL (8.5-10.1)
[2023-08-03 14:50] VITALS: BP 149/67; PULSE 52; TEMP 98
== END 2023-08-03 17:05 | disposition home or self-care (01) | DRG 629 ==
LOC: JER 10:58 → JERBED 17:10 → J6S 07-27 12:33
PROVIDERS: ADMIT Internal Medicine; ATTEND Internal Medicine
PROC: 0QBP3ZX Excision of Left Metatarsal, Percutaneous Approach, Diagnostic (ICD-10-PCS; principal; 2023-07-30 11:00)
DX: E11.69 Type 2 diabetes mellitus with other specified complication (principal); L03.116 Cellulitis of left lower limb; M86.9 Osteomyelitis, unspecified; Z68.43 Body mass index [BMI] 50.0-59.9, adult; E66.01 Morbid (severe) obesity due to excess calories; E11.621 Type 2 diabetes mellitus with foot ulcer; E11.51 Type 2 diabetes mellitus with diabetic peripheral angiopathy without gangrene; E11.65 Type 2 diabetes mellitus with hyperglycemia; I89.0 Lymphedema, not elsewhere classified; A49.02 Methicillin resistant Staphylococcus aureus infection, unspecified site; E11.40 Type 2 diabetes mellitus with diabetic neuropathy, unspecified; F41.9 Anxiety disorder, unspecified; I10 Essential (primary) hypertension; E78.5 Hyperlipidemia, unspecified
CPT/HCPCS: 36415; 73590-TC-LT-FY; 73590-TC-RT-FY; 73630-TC-LT; 73630-TC-RT-FY; 73700-TC-RT; 80048; 80053; 82962; 83036; 83735; 84100; 85025; 85027; 85610; 85651; 85730; 86140; 87040; 87070; 87075; 87081; 87186; 87205; 93005; 93010; 93970-TC; 97116-GP; 97162-GP; 99285-25

== ENCOUNTER 2023-08-16 12:23 | Emergency (ER) | payer MEDICARE, OTHER ==
[2023-08-16] MEDS ORDERED: DALBAVANCIN HCL 1,500 MG in DEXTROSE 5%-WATER - 500 ML IVPB ONE (12:57)
[2023-08-16 14:34] VITALS: RESP 18; BMI 55.7
[2023-08-16 16:39] VITALS: BP 142/62; PULSE 58; TEMP 98
== END 2023-08-16 18:16 | disposition home or self-care (01) ==
LOC: JER 12:23
DX: S91.302A Unspecified open wound, left foot, initial encounter (principal); X58.XXXA Exposure to other specified factors, initial encounter
CPT/HCPCS: 96365; 99284-25; J0875

== ENCOUNTER 2023-08-24 10:26 | Emergency (ER) | payer MEDICARE, OTHER ==
[2023-08-24 10:34] VITALS: RESP 18; TEMP 98.2; BMI 57.0
[2023-08-24] MEDS ORDERED: DALBAVANCIN HCL 1,500 MG in DEXTROSE 5%-WATER - 500 ML IVPB ONE (12:08)
[2023-08-24 17:12] VITALS: BP 138/82; PULSE 64
== END 2023-08-24 17:11 | disposition home or self-care (01) ==
LOC: JER 10:26
DX: L03.115 Cellulitis of right lower limb (principal); L03.116 Cellulitis of left lower limb
CPT/HCPCS: 96365; 99284-25; J0875

== ENCOUNTER 2023-10-06 09:09 | Inpatient (IN) | payer MEDICARE, OTHER ==
[2023-10-06 09:19] VITALS: BMI 52.9
[2023-10-06 10:17] LABS: BASO % 0.3 % (0-2.0); HEMATOCRIT 37.6 % (32.4-45.2); HEMOGLOBIN 12.4 GM/dL (10.7-15.3); LYMPH % 3.8 % (8-40); MCH 27.2 pg (25.7-33.7); MCHC 32.9 g/dl (32.0-36.0); MEAN CELL VOLUME 82.5 fl (80-96); MEAN PLT VOLUME 8.3 fl (7.5-11.1); MONO % 7.5 % (3.8-10.2); NEUT % 88.4 % (42.8-82.8); PLATELET COUNT 189 10^3/uL (134-434); RBC 4.55 M/mm3 (3.60-5.2); RDW 15.8 % (11.6-15.6); WHITE BLOOD COUNT 15.5 K/mm3 (4.0-10.0)
[2023-10-06 10:39] LABS: POTASSIUM 4.9 mmol/L (3.5-5.1)
[2023-10-06 10:41] LABS: ALBUMIN 2.9 g/dl (3.4-5.0); BLOOD UREA NITROGEN 31.8 mg/dL (7-18); CALCIUM 8.9 mg/dL (8.5-10.1); MAGNESIUM 1.7 mg/dL (1.8-2.4)
[2023-10-06 10:44] LABS: CREATININE 1.1 mg/dL (0.55-1.3)
[2023-10-06 10:46] LABS: BILIRUBIN,TOTAL 0.9 mg/dL (0.2-1); TOT PROT 7.4 g/dl (6.4-8.2)
[2023-10-06 12:30] LABS: POTASSIUM 4.5 mmol/L (3.5-5.1)
[2023-10-06 12:31] LABS: CALCIUM 8.5 mg/dL (8.5-10.1)
[2023-10-06 12:35] LABS: CREATININE 1.1 mg/dL (0.55-1.3)
[2023-10-06] MEDS: ASPIRIN 81 MG CHEWABLE TABLETS PO ONE (13:23)
[2023-10-06] MEDS ORDERED: ceFAZolin SODIUM 1 GM VIAL ONE ×4 (13:54→19:28)
[2023-10-06] MEDS: MAGNESIUM SULF 50% (8.12 MEQ/2 ML-1 GM VIAL) IVPB ONE (14:08)
[2023-10-06] MEDS ORDERED: MAGNESIUM 1GM/D5W - 1 GM/100 ML IVPB IVPB ONE (14:08)
[2023-10-06] MEDS: CEFAZOLIN 1 GM in DEXTROSE 5%-WATER - 50 ML IVPB SCH (14:08)
[2023-10-06] MEDS ORDERED: INSULIN (NOVOLOG) ASPART 100 UNITS/ML 10ML VIAL ONE (17:04)
[2023-10-06] MEDS: INSULIN ASPART SLIDING SCALE (NOVOLOG) 1 VIAL SQ SCH (17:05)
[2023-10-06] MEDS: INSULIN (LEVEMIR) 100 UNITS/ML UNITS SQ SCH (21:36)
[2023-10-06] MEDS: METOPROLOL TARTRATE 50 MG TABLET (FP) PO SCH (21:37)
[2023-10-07 07:33] LABS: POTASSIUM 3.8 mmol/L (3.5-5.1)
[2023-10-07 07:48] LABS: BLOOD UREA NITROGEN 34.7 mg/dL (7-18); CALCIUM 7.9 mg/dL (8.5-10.1)
[2023-10-07 07:52] LABS: CREATININE 1.1 mg/dL (0.55-1.3)
[2023-10-07 08:26] LABS: HEMATOCRIT 31.5 % (32.4-45.2); HEMOGLOBIN 10.5 GM/dL (10.7-15.3); MCH 27.3 pg (25.7-33.7); MCHC 33.3 g/dl (32.0-36.0); MEAN CELL VOLUME 82.1 fl (80-96); MEAN PLT VOLUME 8.8 fl (7.5-11.1); PLATELET COUNT 168 10^3/uL (134-434); RBC 3.83 M/mm3 (3.60-5.2); WHITE BLOOD COUNT 12.2 K/mm3 (4.0-10.0)
[2023-10-07 08:27] LABS: EPI CELLS >36 /uL (0-25.1); HYALINE CASTS 2 /uL (0-3.1); URINE APPEARANCE CLOUDY; URINE BACTERIA 36 /uL (0-1359); URINE BILIRUBIN 1+ (NEGATIVE); URINE COLOR DK YELLOW; URINE GLUCOSE (UA) NEGATIVE (NEGATIVE); URINE KETONE TRACE (NEGATIVE); URINE LEUK ESTERASE NEGATIVE (NEGATIVE); URINE NITRITE NEGATIVE (NEGATIVE); URINE PROTEIN 3+ (NEGATIVE); URINE RBC 9 /uL (0-23.9); URINE UROBILINOGEN 0.2 mg/dL (0.2-1.0); URINE WBC 54 /uL (0-25.8)
[2023-10-07] MEDS: ESCITALOPRAM OXALATE 10 MG TABLET PO SCH (09:48)
[2023-10-07] MEDS: LISINOPRIL 20 MG TABLET PO SCH (09:48)
[2023-10-07] MEDS: FUROSEMIDE 20 MG TABLET (FP) PO SCH (09:49)
[2023-10-07] MEDS: ATORVASTATIN CA 80 MG TABLET (FP) PO SCH (09:49)
[2023-10-07] MEDS: ASPIRIN COATED 81 MG TABLET.EC PO SCH (09:49)
[2023-10-07 09:55] LABS: ANISOCYTOSIS 0; HELMET CELLS 0; HOWELL-JOLLY BODIES 0; MACROCYTOSIS 0; OVALOCYTE 0; ROULEAU 0; SICKELED CELLS 0; TARGET CELLS 0; TEAR DROP CELLS 0; TOXIC GRANULATION 0
[2023-10-07] MEDS: COLLAGENASE CLOSTRIDIUM HIST. 30 GRAMS TUBE TP SCH (10:15)
[2023-10-07] MEDS: PIPERACILLIN/TAZOB 3.375 GM 3.375 GM in DEXTROSE 5%-WATER - 50 ML IVPB SCH (18:15)
[2023-10-08 08:15] LABS: POTASSIUM 3.9 mmol/L (3.5-5.1)
[2023-10-08 08:26] LABS: CALCIUM 8.1 mg/dL (8.5-10.1)
[2023-10-08 08:29] LABS: CREATININE 1.1 mg/dL (0.55-1.3)
[2023-10-08 08:45] LABS: BASO % 0.4 % (0-2.0); EOS % 0.7 % (0-4.5); HEMOGLOBIN 10.2 GM/dL (10.7-15.3); LYMPH % 8.1 % (8-40); MCH 27.1 pg (25.7-33.7); MCHC 33.1 g/dl (32.0-36.0); MEAN CELL VOLUME 81.9 fl (80-96); MONO % 12.8 % (3.8-10.2); PLATELET COUNT 187 10^3/uL (134-434); RBC 3.79 M/mm3 (3.60-5.2); RDW 16.2 % (11.6-15.6); WHITE BLOOD COUNT 14.3 K/mm3 (4.0-10.0)
[2023-10-08] MEDS ORDERED: INSULIN (NOVOLOG) ASPART 100 UNITS/ML 10ML VIAL ONE (11:43)
[2023-10-08] MEDS: HEPARIN NA (PORCINE) 5,000 UNITS/ML 1ML VIAL SQ SCH (21:48)
[2023-10-09] MEDS ORDERED: INSULIN (NOVOLOG) ASPART 100 UNITS/ML 10ML VIAL ONE (06:34)
[2023-10-09 07:13] LABS: BASO % 0.2 % (0-2.0); EOS % 0.5 % (0-4.5); HEMATOCRIT 29.9 % (32.4-45.2); HEMOGLOBIN 9.8 GM/dL (10.7-15.3); LYMPH % 9.6 % (8-40); MCH 26.9 pg (25.7-33.7); MCHC 32.7 g/dl (32.0-36.0); MEAN CELL VOLUME 82.3 fl (80-96); MEAN PLT VOLUME 8.7 fl (7.5-11.1); MONO % 11.8 % (3.8-10.2); NEUT % 77.9 % (42.8-82.8); PLATELET COUNT 219 10^3/uL (134-434); RBC 3.63 M/mm3 (3.60-5.2); RDW 15.9 % (11.6-15.6); WHITE BLOOD COUNT 14.6 K/mm3 (4.0-10.0)
[2023-10-09 07:33] LABS: POTASSIUM 4.1 mmol/L (3.5-5.1)
[2023-10-09 07:39] LABS: CALCIUM 7.8 mg/dL (8.5-10.1); MAGNESIUM 2.2 mg/dL (1.8-2.4)
[2023-10-09 07:42] LABS: BILIRUBIN,TOTAL 0.8 mg/dL (0.2-1); CREATININE 1.2 mg/dL (0.55-1.3); TOT PROT 5.9 g/dl (6.4-8.2)
[2023-10-09 07:48] LABS: ALBUMIN 1.9 g/dl (3.4-5.0)
[2023-10-09] MEDS: FLU VACCINE (FLULAVAL) PF 60 MCG/0.5 ML SYRINGE 2023-2024 IM ONE (15:29)
[2023-10-10] MEDS ORDERED: INSULIN (NOVOLOG) ASPART 100 UNITS/ML 10ML VIAL ONE ×3 (06:51→17:42)
[2023-10-10 08:21] LABS: BASO % 0.3 % (0-2.0); EOS % 1.8 % (0-4.5); HEMATOCRIT 29.6 % (32.4-45.2); HEMOGLOBIN 9.6 GM/dL (10.7-15.3); LYMPH % 11.3 % (8-40); MCH 26.9 pg (25.7-33.7); MCHC 32.4 g/dl (32.0-36.0); MEAN CELL VOLUME 82.8 fl (80-96); MEAN PLT VOLUME 8.8 fl (7.5-11.1); NEUT % 76.6 % (42.8-82.8); PLATELET COUNT 264 10^3/uL (134-434); RBC 3.58 M/mm3 (3.60-5.2); RDW 16.3 % (11.6-15.6); WHITE BLOOD COUNT 14.6 K/mm3 (4.0-10.0)
[2023-10-10 08:52] LABS: POTASSIUM 4.1 mmol/L (3.5-5.1)
[2023-10-10 09:02] LABS: ALBUMIN 1.9 g/dl (3.4-5.0); BLOOD UREA NITROGEN 49.2 mg/dL (7-18); CALCIUM 7.8 mg/dL (8.5-10.1)
[2023-10-10 09:04] LABS: MAGNESIUM 2.2 mg/dL (1.8-2.4)
[2023-10-10 09:05] LABS: CREATININE 1.2 mg/dL (0.55-1.3); PHOSPHOROUS 3.3 mg/dL (2.5-4.9)
[2023-10-10 09:08] LABS: TOT PROT 5.8 g/dl (6.4-8.2)
[2023-10-10 09:09] LABS: BILIRUBIN,TOTAL 0.7 mg/dL (0.2-1)
[2023-10-11 07:51] LABS: BASO % 0.2 % (0-2.0); EOS % 1.1 % (0-4.5); HEMATOCRIT 30.3 % (32.4-45.2); HEMOGLOBIN 10.2 GM/dL (10.7-15.3); MCH 27.6 pg (25.7-33.7); MCHC 33.5 g/dl (32.0-36.0); MEAN CELL VOLUME 82.4 fl (80-96); MEAN PLT VOLUME 8.6 fl (7.5-11.1); MONO % 7.9 % (3.8-10.2); NEUT % 79.8 % (42.8-82.8); PLATELET COUNT 353 10^3/uL (134-434); RBC 3.68 M/mm3 (3.60-5.2); RDW 16.2 % (11.6-15.6); WHITE BLOOD COUNT 15.1 K/mm3 (4.0-10.0)
[2023-10-11 08:22] LABS: POTASSIUM 4.4 mmol/L (3.5-5.1)
[2023-10-11 08:32] LABS: CALCIUM 8.2 mg/dL (8.5-10.1)
[2023-10-11 08:33] LABS: BLOOD UREA NITROGEN 46.5 mg/dL (7-18)
[2023-10-11 08:36] LABS: CREATININE 1.1 mg/dL (0.55-1.3)
[2023-10-11 08:37] LABS: BILIRUBIN,TOTAL 0.6 mg/dL (0.2-1); TOT PROT 6.7 g/dl (6.4-8.2)
[2023-10-11] MEDS ORDERED: AZTREONAM 1 GM in DEXTROSE 5%-WATER - 50 ML IVPB SCH (18:45)
[2023-10-11] MEDS ORDERED: AZTREONAM 1 GM in SODIUM CHLORIDE 50 ML IVPB SCH (19:45)
[2023-10-11] MEDS: AZTREONAM 1 GM in SODIUM CHLORIDE 50 ML IVPB SCH (22:53)
[2023-10-12] MEDS ORDERED: INSULIN (NOVOLOG) ASPART 100 UNITS/ML 10ML VIAL ONE (06:29)
[2023-10-12 07:12] LABS: HEMATOCRIT 30.9 % (32.4-45.2); HEMOGLOBIN 10.2 GM/dL (10.7-15.3); MCHC 33.1 g/dl (32.0-36.0); MEAN CELL VOLUME 81.7 fl (80-96); MEAN PLT VOLUME 8.4 fl (7.5-11.1); PLATELET COUNT 391 10^3/uL (134-434); RBC 3.79 M/mm3 (3.60-5.2); RDW 16.2 % (11.6-15.6)
[2023-10-12 07:28] LABS: POTASSIUM 4.9 mmol/L (3.5-5.1)
[2023-10-12 07:34] LABS: CALCIUM 7.9 mg/dL (8.5-10.1)
[2023-10-12 07:35] LABS: ALBUMIN 1.7 g/dl (3.4-5.0); BLOOD UREA NITROGEN 44.3 mg/dL (7-18); MAGNESIUM 2.1 mg/dL (1.8-2.4)
[2023-10-12 07:38] LABS: CREATININE 0.9 mg/dL (0.55-1.3); PHOSPHOROUS 2.8 mg/dL (2.5-4.9)
[2023-10-12 07:39] LABS: BILIRUBIN,TOTAL 0.4 mg/dL (0.2-1)
[2023-10-12 08:58] LABS: ANISOCYTOSIS 0; MACROCYTOSIS 0
[2023-10-12] MEDS: MEROPENEM 1 GM in DEXTROSE 5%-WATER 100 ML IVPB SCH (14:11)
[2023-10-12] MEDS: ACETAMINOPHEN 325 MG TABLET (FP) PO PRN (14:11)
[2023-10-13 09:40] LABS: BASO % 0.3 % (0-2.0); EOS % 2.3 % (0-4.5); HEMATOCRIT 32.9 % (32.4-45.2); HEMOGLOBIN 10.6 GM/dL (10.7-15.3); MCH 26.4 pg (25.7-33.7); MCHC 32.2 g/dl (32.0-36.0); MEAN CELL VOLUME 82.2 fl (80-96); MEAN PLT VOLUME 8.3 fl (7.5-11.1); MONO % 9.9 % (3.8-10.2); NEUT % 74.5 % (42.8-82.8); PLATELET COUNT 442 10^3/uL (134-434); RDW 16.4 % (11.6-15.6); WHITE BLOOD COUNT 12.7 K/mm3 (4.0-10.0)
[2023-10-13 09:45] LABS: CALCIUM 8.3 mg/dL (8.5-10.1)
[2023-10-13 09:46] LABS: ALBUMIN 1.7 g/dl (3.4-5.0); BLOOD UREA NITROGEN 42.5 mg/dL (7-18); MAGNESIUM 2.1 mg/dL (1.8-2.4)
[2023-10-13 09:49] LABS: CREATININE 0.9 mg/dL (0.55-1.3); PHOSPHOROUS 3.1 mg/dL (2.5-4.9)
[2023-10-13 09:50] LABS: BILIRUBIN,TOTAL 0.3 mg/dL (0.2-1); TOT PROT 6.1 g/dl (6.4-8.2)
[2023-10-13] MEDS: INSULIN ASPART SLIDING SCALE (NOVOLOG) 1 VIAL SQ SCH (11:39)
[2023-10-13] MEDS: ALBUTEROL SO4 2.5/IPRATROPIUM 0.5 INH SOL 3 ML VIAL.NEB. NEB SCH (14:00)
[2023-10-13] MEDS ORDERED: INSULIN ASPART SLIDING SCALE (NOVOLOG) 1 VIAL SQ SCH (16:30)
[2023-10-13] MEDS: INSULIN (LEVEMIR) 100 UNITS/ML UNITS SQ SCH (21:44)
[2023-10-14] MEDS: MELATONIN 5 MG TABLETS PO ONE (00:14)
[2023-10-14 09:13] LABS: HEMATOCRIT 30.3 % (32.4-45.2); HEMOGLOBIN 10.4 GM/dL (10.7-15.3); MCH 27.9 pg (25.7-33.7); MCHC 34.2 g/dl (32.0-36.0); MEAN CELL VOLUME 81.5 fl (80-96); PLATELET COUNT 454 10^3/uL (134-434); RBC 3.72 M/mm3 (3.60-5.2); RDW 15.9 % (11.6-15.6); WHITE BLOOD COUNT 12.7 K/mm3 (4.0-10.0)
[2023-10-14 09:32] LABS: POTASSIUM 5.6 mmol/L (3.5-5.1)
[2023-10-14 09:36] LABS: CALCIUM 8.6 mg/dL (8.5-10.1); MAGNESIUM 1.9 mg/dL (1.8-2.4)
[2023-10-14 09:37] LABS: ALBUMIN 1.6 g/dl (3.4-5.0)
[2023-10-14 09:39] LABS: CREATININE 0.9 mg/dL (0.55-1.3); PHOSPHOROUS 3.6 mg/dL (2.5-4.9)
[2023-10-14 09:41] LABS: BILIRUBIN,TOTAL 0.2 mg/dL (0.2-1)
[2023-10-14] MEDS: SODIUM ZIRCONIUM CYCLOSILICATE (LOKELMA) 5 GM PACKET PO ONE (10:11)
[2023-10-15] MEDS: ESCITALOPRAM OXALATE 10 MG TABLET PO SCH (11:21)
[2023-10-15] MEDS: FUROSEMIDE 20 MG TABLET (FP) PO SCH (11:21)
[2023-10-15] MEDS: ASPIRIN COATED 81 MG TABLET.EC PO SCH (11:21)
[2023-10-15] MEDS: ATORVASTATIN CA 80 MG TABLET (FP) PO SCH (11:21)
[2023-10-15] MEDS: LISINOPRIL 20 MG TABLET PO SCH (11:22)
[2023-10-15] MEDS: METOPROLOL TARTRATE 50 MG TABLET (FP) PO SCH (11:22)
[2023-10-15] MEDS: COLLAGENASE CLOSTRIDIUM HIST. 30 GRAMS TUBE TP SCH (11:23)
[2023-10-15] MEDS: HEPARIN NA (PORCINE) 5,000 UNITS/ML 1ML VIAL SQ SCH (13:20)
[2023-10-15] MEDS: SODIUM ZIRCONIUM CYCLOSILICATE (LOKELMA) 5 GM PACKET PO ONE (14:22)
[2023-10-15 19:32] LABS: POTASSIUM 5.9 mmol/L (3.5-5.1)
[2023-10-15 19:33] LABS: CALCIUM 8.1 mg/dL (8.5-10.1)
[2023-10-15 19:34] LABS: BLOOD UREA NITROGEN 51.2 mg/dL (7-18)
[2023-10-15 19:37] LABS: CREATININE 1.1 mg/dL (0.55-1.3)
[2023-10-16] MEDS: SODIUM ZIRCONIUM CYCLOSILICATE (LOKELMA) 5 GM PACKET PO SCH (08:28)
[2023-10-16] MEDS: INSULIN (NOVOLOG) ASPART 100 UNITS/ML 10ML VIAL SQ ONE ×2 (08:29→21:39)
[2023-10-16 09:16] LABS: HEMATOCRIT 32.4 % (32.4-45.2); HEMOGLOBIN 10.5 GM/dL (10.7-15.3); MCH 26.5 pg (25.7-33.7); MCHC 32.4 g/dl (32.0-36.0); MEAN CELL VOLUME 81.6 fl (80-96); MEAN PLT VOLUME 7.9 fl (7.5-11.1); PLATELET COUNT 488 10^3/uL (134-434); RBC 3.96 M/mm3 (3.60-5.2); RDW 16.1 % (11.6-15.6); WHITE BLOOD COUNT 15.7 K/mm3 (4.0-10.0)
[2023-10-16 09:44] LABS: POTASSIUM 5.8 mmol/L (3.5-5.1)
[2023-10-16 09:58] LABS: CALCIUM 8.5 mg/dL (8.5-10.1)
[2023-10-16 09:59] LABS: ALBUMIN 1.8 g/dl (3.4-5.0); BLOOD UREA NITROGEN 46.1 mg/dL (7-18)
[2023-10-16 10:02] LABS: CREATININE 0.9 mg/dL (0.55-1.3)
[2023-10-16 10:03] LABS: BILIRUBIN,TOTAL 0.3 mg/dL (0.2-1); TOT PROT 6.2 g/dl (6.4-8.2)
[2023-10-16] MEDS: SODIUM CHLORIDE 1,000 ML IV STA (11:08)
[2023-10-16 16:40] LABS: POTASSIUM 5.8 mmol/L (3.5-5.1)
[2023-10-16 16:42] LABS: CALCIUM 8.1 mg/dL (8.5-10.1)
[2023-10-16 16:43] LABS: BLOOD UREA NITROGEN 45.8 mg/dL (7-18)
[2023-10-16 16:46] LABS: CREATININE 0.8 mg/dL (0.55-1.3)
[2023-10-16 20:42] LABS: POTASSIUM 5.6 mmol/L (3.5-5.1)
[2023-10-16 20:44] LABS: BLOOD UREA NITROGEN 46.7 mg/dL (7-18); CALCIUM 8.1 mg/dL (8.5-10.1)
[2023-10-16 20:48] LABS: CREATININE 0.9 mg/dL (0.55-1.3)
[2023-10-16] MEDS: INSULIN (LEVEMIR) 100 UNITS/ML UNITS SQ SCH (21:58)
[2023-10-17 07:47] LABS: HEMATOCRIT 32.1 % (32.4-45.2); HEMOGLOBIN 10.3 GM/dL (10.7-15.3); MCH 26.4 pg (25.7-33.7); MCHC 32.2 g/dl (32.0-36.0); MEAN CELL VOLUME 82.1 fl (80-96); MEAN PLT VOLUME 7.9 fl (7.5-11.1); PLATELET COUNT 479 10^3/uL (134-434); RDW 16.2 % (11.6-15.6); WHITE BLOOD COUNT 17.6 K/mm3 (4.0-10.0)
[2023-10-17 08:28] LABS: POTASSIUM 5.8 mmol/L (3.5-5.1)
[2023-10-17 08:48] LABS: ALBUMIN 1.8 g/dl (3.4-5.0); CALCIUM 9.1 mg/dL (8.5-10.1)
[2023-10-17 08:49] LABS: BLOOD UREA NITROGEN 40.8 mg/dL (7-18)
[2023-10-17 08:52] LABS: CREATININE 0.8 mg/dL (0.55-1.3)
[2023-10-17 08:53] LABS: BILIRUBIN,TOTAL 0.4 mg/dL (0.2-1); TOT PROT 6.2 g/dl (6.4-8.2)
[2023-10-17] MEDS: SODIUM ZIRCONIUM CYCLOSILICATE (LOKELMA) 5 GM PACKET PO SCH (09:05)
[2023-10-17] MEDS: SODIUM CHLORIDE 0.45% 1,000 ML IV SCH (12:12)
[2023-10-17] MEDS: APIXABAN 5 MG TABLET PO SCH (21:16)
[2023-10-17] MEDS: INSULIN (LEVEMIR) 100 UNITS/ML UNITS SQ SCH (21:18)
[2023-10-18 07:13] LABS: HEMATOCRIT 31.3 % (32.4-45.2); HEMOGLOBIN 10.1 GM/dL (10.7-15.3); MCH 26.5 pg (25.7-33.7); MCHC 32.4 g/dl (32.0-36.0); MEAN CELL VOLUME 81.9 fl (80-96); MEAN PLT VOLUME 7.8 fl (7.5-11.1); PLATELET COUNT 447 10^3/uL (134-434); RBC 3.82 M/mm3 (3.60-5.2); RDW 16.7 % (11.6-15.6); WHITE BLOOD COUNT 14.8 K/mm3 (4.0-10.0)
[2023-10-18 07:31] LABS: POTASSIUM 5.6 mmol/L (3.5-5.1)
[2023-10-18 07:37] LABS: CALCIUM 8.7 mg/dL (8.5-10.1)
[2023-10-18 07:38] LABS: ALBUMIN 1.8 g/dl (3.4-5.0); BLOOD UREA NITROGEN 39.5 mg/dL (7-18)
[2023-10-18 07:39] LABS: CREATININE 0.7 mg/dL (0.55-1.3)
[2023-10-18 07:40] LABS: BILIRUBIN,TOTAL 0.3 mg/dL (0.2-1); TOT PROT 6.1 g/dl (6.4-8.2)
[2023-10-18] MEDS: FUROSEMIDE 40 MG TABLET (FP) PO SCH (10:21)
[2023-10-18] MEDS: ALBUTEROL SO4 2.5/IPRATROPIUM 0.5 INH SOL 3 ML VIAL.NEB. NEB SCH (12:35)
[2023-10-18] MEDS: ACETAMINOPHEN 325 MG TABLET (FP) PO PRN (12:36)
[2023-10-18] MEDS: INSULIN ASPART SLIDING SCALE (NOVOLOG) 1 VIAL SQ SCH (18:06)
[2023-10-18] MEDS: METOPROLOL TARTRATE 50 MG TABLET (FP) PO SCH (21:16)
[2023-10-19 07:04] LABS: HEMATOCRIT 30.3 % (32.4-45.2); HEMOGLOBIN 10.1 GM/dL (10.7-15.3); MCH 27.1 pg (25.7-33.7); MCHC 33.2 g/dl (32.0-36.0); MEAN CELL VOLUME 81.4 fl (80-96); MEAN PLT VOLUME 7.9 fl (7.5-11.1); PLATELET COUNT 406 10^3/uL (134-434); RBC 3.73 M/mm3 (3.60-5.2); RDW 16.2 % (11.6-15.6); WHITE BLOOD COUNT 13.4 K/mm3 (4.0-10.0)
[2023-10-19 07:22] LABS: POTASSIUM 5.2 mmol/L (3.5-5.1)
[2023-10-19 07:24] LABS: CALCIUM 8.7 mg/dL (8.5-10.1)
[2023-10-19 07:25] LABS: ALBUMIN 1.7 g/dl (3.4-5.0); BLOOD UREA NITROGEN 39.6 mg/dL (7-18)
[2023-10-19 07:28] LABS: CREATININE 0.7 mg/dL (0.55-1.3)
[2023-10-19 07:29] LABS: TOT PROT 5.7 g/dl (6.4-8.2)
[2023-10-19 07:30] LABS: BILIRUBIN,TOTAL 0.3 mg/dL (0.2-1)
[2023-10-19] MEDS: ESCITALOPRAM OXALATE 10 MG TABLET PO SCH (10:03)
[2023-10-19] MEDS: ATORVASTATIN CA 80 MG TABLET (FP) PO SCH (10:03)
[2023-10-19] MEDS: ASPIRIN COATED 81 MG TABLET.EC PO SCH (10:04)
[2023-10-19] MEDS: COLLAGENASE CLOSTRIDIUM HIST. 30 GRAMS TUBE TP SCH (19:49)
[2023-10-19] MEDS: INSULIN (LEVEMIR) 100 UNITS/ML UNITS SQ SCH (21:27)
[2023-10-20 07:52] LABS: HEMATOCRIT 30.2 % (32.4-45.2); HEMOGLOBIN 10.1 GM/dL (10.7-15.3); MCH 27.3 pg (25.7-33.7); MCHC 33.7 g/dl (32.0-36.0); MEAN CELL VOLUME 81.2 fl (80-96); MEAN PLT VOLUME 7.8 fl (7.5-11.1); PLATELET COUNT 423 10^3/uL (134-434); RBC 3.71 M/mm3 (3.60-5.2); RDW 15.9 % (11.6-15.6); WHITE BLOOD COUNT 12.1 K/mm3 (4.0-10.0)
[2023-10-20 08:00] LABS: POTASSIUM 4.7 mmol/L (3.5-5.1)
[2023-10-20 08:02] LABS: CALCIUM 8.5 mg/dL (8.5-10.1)
[2023-10-20 08:03] LABS: ALBUMIN 1.8 g/dl (3.4-5.0); BLOOD UREA NITROGEN 40.1 mg/dL (7-18)
[2023-10-20 08:06] LABS: CREATININE 0.7 mg/dL (0.55-1.3)
[2023-10-20 08:08] LABS: BILIRUBIN,TOTAL 0.4 mg/dL (0.2-1); TOT PROT 5.9 g/dl (6.4-8.2)
[2023-10-20] MEDS: FUROSEMIDE 20 MG TABLET (FP) PO SCH (11:13)
[2023-10-21 07:56] LABS: BASO % 0.8 % (0-2.0); HEMATOCRIT 30.3 % (32.4-45.2); HEMOGLOBIN 9.8 GM/dL (10.7-15.3); LYMPH % 16.6 % (8-40); MCH 26.8 pg (25.7-33.7); MCHC 32.5 g/dl (32.0-36.0); MEAN CELL VOLUME 82.5 fl (80-96); MEAN PLT VOLUME 7.9 fl (7.5-11.1); MONO % 9.4 % (3.8-10.2); NEUT % 68.2 % (42.8-82.8); PLATELET COUNT 398 10^3/uL (134-434); RBC 3.67 M/mm3 (3.60-5.2); RDW 16.2 % (11.6-15.6); WHITE BLOOD COUNT 11.3 K/mm3 (4.0-10.0)
[2023-10-21 08:16] LABS: ALBUMIN 1.8 g/dl (3.4-5.0); BLOOD UREA NITROGEN 42.1 mg/dL (7-18); CALCIUM 8.2 mg/dL (8.5-10.1)
[2023-10-21 08:19] LABS: CREATININE 0.8 mg/dL (0.55-1.3)
[2023-10-21 08:21] LABS: BILIRUBIN,TOTAL 0.4 mg/dL (0.2-1); TOT PROT 5.7 g/dl (6.4-8.2)
[2023-10-21] MEDS: SODIUM ZIRCONIUM CYCLOSILICATE (LOKELMA) 5 GM PACKET PO SCH (10:13)
[2023-10-22] MEDS: INSULIN ASPART SLIDING SCALE (NOVOLOG) 1 VIAL SQ SCH (06:56)
[2023-10-22] MEDS: ALBUTEROL SO4 2.5/IPRATROPIUM 0.5 INH SOL 3 ML VIAL.NEB. NEB SCH (07:45)
[2023-10-22 10:00] LABS: BASO % 0.7 % (0-2.0); EOS % 2.3 % (0-4.5); LYMPH % 12.8 % (8-40); MCH 26.4 pg (25.7-33.7); MCHC 32.1 g/dl (32.0-36.0); MEAN CELL VOLUME 82.3 fl (80-96); MEAN PLT VOLUME 7.9 fl (7.5-11.1); MONO % 7.8 % (3.8-10.2); NEUT % 76.4 % (42.8-82.8); PLATELET COUNT 388 10^3/uL (134-434); RBC 3.76 M/mm3 (3.60-5.2); RDW 16.5 % (11.6-15.6)
[2023-10-22 10:20] LABS: POTASSIUM 5.1 mmol/L (3.5-5.1)
[2023-10-22 10:29] LABS: ALBUMIN 1.8 g/dl (3.4-5.0); BLOOD UREA NITROGEN 42.4 mg/dL (7-18); CALCIUM 8.5 mg/dL (8.5-10.1)
[2023-10-22 10:31] LABS: CREATININE 0.9 mg/dL (0.55-1.3)
[2023-10-22 10:33] LABS: BILIRUBIN,TOTAL 0.3 mg/dL (0.2-1); TOT PROT 5.9 g/dl (6.4-8.2)
[2023-10-22] MEDS: ASPIRIN COATED 81 MG TABLET.EC PO SCH (11:03)
[2023-10-22] MEDS: APIXABAN 5 MG TABLET PO SCH (11:03)
[2023-10-22] MEDS: ATORVASTATIN CA 80 MG TABLET (FP) PO SCH (11:03)
[2023-10-22] MEDS: ESCITALOPRAM OXALATE 10 MG TABLET PO SCH (11:03)
[2023-10-22] MEDS: FUROSEMIDE 20 MG TABLET (FP) PO SCH (11:03)
[2023-10-22] MEDS: METOPROLOL TARTRATE 50 MG TABLET (FP) PO SCH (11:03)
[2023-10-22] MEDS: COLLAGENASE CLOSTRIDIUM HIST. 30 GRAMS TUBE TP SCH (11:04)
[2023-10-22] MEDS: EMPAGLIFLOZIN (JARDIANCE) 25 MG TABLET PO SCH (14:48)
[2023-10-22] MEDS: MELATONIN 5 MG TABLETS PO ONE (21:35)
[2023-10-22] MEDS: INSULIN (LEVEMIR) 100 UNITS/ML UNITS SQ SCH (21:53)
[2023-10-23 09:26] LABS: HEMATOCRIT 32.4 % (32.4-45.2); HEMOGLOBIN 10.4 GM/dL (10.7-15.3); MCH 26.6 pg (25.7-33.7); MCHC 32.3 g/dl (32.0-36.0); MEAN CELL VOLUME 82.4 fl (80-96); MEAN PLT VOLUME 7.9 fl (7.5-11.1); PLATELET COUNT 417 10^3/uL (134-434); RBC 3.93 M/mm3 (3.60-5.2); WHITE BLOOD COUNT 13.2 K/mm3 (4.0-10.0)
[2023-10-23 10:09] LABS: BLOOD UREA NITROGEN 36.2 mg/dL (7-18)
[2023-10-23 10:12] LABS: CREATININE 0.7 mg/dL (0.55-1.3)
[2023-10-23 10:13] LABS: BILIRUBIN,TOTAL 0.5 mg/dL (0.2-1); TOT PROT 6.4 g/dl (6.4-8.2)
[2023-10-23] MEDS: MELATONIN 5 MG TABLETS PO SCH (22:14)
[2023-10-23] MEDS: MELATONIN 5 MG TABLETS PO ONE (23:11)
[2023-10-24] MEDS: ACETAMINOPHEN 325 MG TABLET (FP) PO PRN (06:20)
[2023-10-24 09:33] LABS: HEMATOCRIT 31.1 % (32.4-45.2); HEMOGLOBIN 10.2 GM/dL (10.7-15.3); MCH 26.8 pg (25.7-33.7); MCHC 32.7 g/dl (32.0-36.0); MEAN CELL VOLUME 81.9 fl (80-96); MEAN PLT VOLUME 8.1 fl (7.5-11.1); PLATELET COUNT 409 10^3/uL (134-434); RDW 16.4 % (11.6-15.6); WHITE BLOOD COUNT 11.5 K/mm3 (4.0-10.0)
[2023-10-24 09:59] LABS: CALCIUM 8.9 mg/dL (8.5-10.1)
[2023-10-24 10:00] LABS: ALBUMIN 1.9 g/dl (3.4-5.0); BLOOD UREA NITROGEN 32.7 mg/dL (7-18)
[2023-10-24 10:03] LABS: CREATININE 0.7 mg/dL (0.55-1.3)
[2023-10-24 10:05] LABS: BILIRUBIN,TOTAL 0.5 mg/dL (0.2-1); TOT PROT 6.3 g/dl (6.4-8.2)
[2023-10-24] MEDS: EMPAGLIFLOZIN (JARDIANCE) 25 MG TABLET PO SCH (11:51)
[2023-10-24 14:26] VITALS: BP 127/76; PULSE 68; RESP 19; TEMP 98.2
== END 2023-10-24 15:21 | DRG 871 ==
LOC: JER 09:09 → JERBED 13:06 → J4W 20:37 → J5S 10-12 13:02 → J4S 10-17 00:11 → J5S 10-21 23:12
PROVIDERS: ADMIT Internal Medicine; ATTEND Internal Medicine
DX: A41.9 Sepsis, unspecified organism (principal); J96.21 Acute and chronic respiratory failure with hypoxia; J96.22 Acute and chronic respiratory failure with hypercapnia; N39.0 Urinary tract infection, site not specified; Z68.43 Body mass index [BMI] 50.0-59.9, adult; L03.119 Cellulitis of unspecified part of limb; M86.9 Osteomyelitis, unspecified; I13.0 Hypertensive heart and chronic kidney disease with heart failure and stage 1 through stage 4 chronic kidney disease, or unspecified chronic kidney disease; L97.909 Non-pressure chronic ulcer of unspecified part of unspecified lower leg with unspecified severity; E87.0 Hyperosmolality and hypernatremia; E11.621 Type 2 diabetes mellitus with foot ulcer; E66.01 Morbid (severe) obesity due to excess calories; I10 Essential (primary) hypertension; E78.5 Hyperlipidemia, unspecified; L97.509 Non-pressure chronic ulcer of other part of unspecified foot with unspecified severity; E11.22 Type 2 diabetes mellitus with diabetic chronic kidney disease; N18.9 Chronic kidney disease, unspecified; I48.91 Unspecified atrial fibrillation; B96.4 Proteus (mirabilis) (morganii) as the cause of diseases classified elsewhere
CPT/HCPCS: 0241U-QW; 36415; 71045-TC-FY; 73630-TC-LT; 80048; 80053; 81003; 82550; 82553; 82962; 83615; 83735; 84100; 84484; 85025; 85027; 86140; 87040; 87086; 87186; 87635; 88300-TC; 93005; 93010; 93306-TC; 94640; 94660; 97116-GP; 97163-GP; 99285-25; J1644